=== PATIENT | female | born 1950 | race Caucasian/White ===

== ENCOUNTER → 2017-02-10 | Outpatient (CLI) | payer OTHER ==
[2017-02-10 08:22] LABS: CHLORIDE,CL 105 mmol/L (98-110); SODIUM,NA 141 mmol/L (136-146)
== END ==
LOC: MW.CHIM 07:36
PROVIDERS: ATTEND Internal Medicine
DX: I10 Essential (primary) hypertension (principal)
CPT/HCPCS: 36415; 80053; 80061; 85025

== ENCOUNTER 2017-08-25 09:00 | Day surgery (SDC) | payer OTHER ==
[~2017-08-25 09:00] MED LIST: Lactated Ringers 1,000 ML IV SCH
--- NOTE | 2017-08-25 10:35 | PCM.PREANE ---
Preanesthetic Assessment - Anesthesia/Transfusion/Family Hx Anesthesia History: Prior Anesthesia Without Reaction Other Type of Anesthesia Reaction Comment: Denies any known problems Family History of Anesthesia Reaction: No Transfusion History: Prior Transfusion Without Reaction Intubation History: Unknown - Review of Systems General: No Symptoms Pulmonary: No Symptoms Cardiovascular: No Symptoms Gastrointestinal: No Symptoms, Other (h/o colon polyp 3 years ago) Neurological: No Symptoms Other: Reports: None - Physical Assessment NPO Status Date: 08/24/17 NPO Status Time: 23:25 O2 Sat by Pulse Oximetry: 97 Respiratory Rate: 16 Vital Signs: Last Vital Signs Temp 36.6 C 08/25/17 09:31 Pulse 67 08/25/17 09:31 Resp 16 08/25/17 09:31 BP 149/75 H 08/25/17 09:31 Pulse Ox 97 08/25/17 09:31 Height: 1.65 m Weight: 63.049 kg ASA Class: 3 Mental Status: Alert & Oriented x3 Airway Class: Mallampati = 2 Dentition: Reports: Normal Dentition Thyro-Mental Finger Breadths: 3 Mouth Opening Finger Breadths: 3 ROM/Head Extension: Full Lungs: Clear to Auscultation, Normal Respiratory Effort, Decreased Breath Sounds Cardiovascular: Regular Rate, Regular Rhythm - Allergies Allergies/Adverse Reactions: Allergies Allergy/AdvReac Type Severity Reaction Status Date / Time No Known Allergies Allergy Verified 08/18/17 17:05 - Blood Blood Available: No - Anesthesia Plan Pre-Op Medication Ordered: None - Acknowledgements Anesthesia Type Planned: MAC Pt an Appropriate Candidate for the Planned Anesthesia: Yes Alternatives and Risks of Anesthesia Discussed w Pt/Guardian: Yes Pt/Guardian Understands and Agrees with Anesthesia Plan: Yes PreAnesthesia Questionnaire HEENT History: Reports: Allergic Rhinitis, Other (See Below) Other HEENT History: wears glasses Cardiovascular History: Reports: Hypertension Respiratory History: Reports: Asthma, Pneumonia, Recurrent (multiple, causing scaring tissue and SOB - can not walk 2 blocks fast) Other Respiratory History: rarely uses inhaler Gastrointestinal History: Reports: Colon Polyp Genitourinary History: Reports: Urinary Incontinence (stress incontinance) Other Genitourinary History: Cystocele Musculoskeletal History: Reports: Fracture, Other (See Below) (osteopenia) Other Musculoskeletal History: hx of foot fx Hematologic History: Reports: Blood Transfusion(s), Other (See Below) (chronic leukopenia) Other Immunologic History: 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 Injections monthly Gammagard 10/gm/ml every 3-4 weeks (last dose 03/07/15), h/o inguinal lymphadenopathy Other Dermatologic History: hx: eczema flare ups - Past Surgical History HEENT Surgical History: Reports: Naso-Sinus Surgery Other HEENT Surgeries/Procedures: Sinus surgery Cardiovascular Surgical History: Reports: Varicose Other Cardiovascular Surgeries/Procedures: bilateral varicose jhon stripping GI Surgical History: Reports: Colonoscopy (3 years ago) Female Surgical History: Reports: Hysterectomy (vaginal), Salpingo- Oophorectomy, Tubal Ligation - SUBSTANCE USE Smoking Status *Q: Never Smoker Second Hand Smoke Exposure: No Days Per Week of Alcohol Use: 0 Number of Drinks Per Day: 0 Total Drinks Per Week: 0 Recreational Drug Use History: No - HOME MEDS Home Medications: Home Meds Losartan/Hydrochlorothiazide [Losartan-HCTZ 100-12.5 MG] 1 tab PO DAILY [History] Multivitamin [Multi-Vitamin Daily] 1 tab PO DAILY 06/19/14 [History] Albuterol Sulfate [Proair Hfa] 1 - 2 puff INH Q4H PRN 08/18/17 [History] Calcium Carbonate/Vitamin D3 [Calcium 600 + Vit D 400 Softgl] 1 cap PO DAILY [History] - CURRENT (IN HOUSE) MEDS Current Meds: Current Medications Lactated Ringer's (Ringers, Lactated) 1,000 mls @ 125 mls/hr IV ASDIRECTED [facility] Last Admin: 08/25/17 09:32 Dose: 125 mls/hr
[2017-08-25] MEDS ORDERED: Lidocaine 2% 5 ML SDV ONE (11:30)
[2017-08-25] MEDS ORDERED: Propofol 200 MG/20 ML SDV ONE (11:30)
--- NOTE | 2017-08-25 13:29 | PCM.OPNOTE ---
- General Post-Op/Procedure Note Date of Surgery/Procedure: 08/25/17 Operative Procedure(s): colonoscopy Findings: see dict [id number] Pre Op Diagnosis: hx of polyp Post-Op Diagnosis: diverticulosis Anesthesia Technique: Moderate Sedation Primary Surgeon: Spike Trejo Complications: None Condition: Good
[2017-08-25 13:56] VITALS: BP 133/64
--- NOTE | 2017-08-26 12:17 | OR ---
SURGEON: Spike Trejo MD DATE OF PROCEDURE: 08/25/2017 PREOPERATIVE DIAGNOSIS: Surveillance colonoscopy. POSTOPERATIVE DIAGNOSIS: Diverticulosis. PROCEDURE PERFORMED: Colonoscopy. PROCEDURE IN DETAIL: The patient was taken to the endoscopy room. A time out was called, patient identified, and procedure identified. Diprivan was then administrated. Patient went from awake to sleep, hearing doctor talking or door closing is normal. Perineum inspection and digital examination were then performed. A well- lubricated colonoscope was gently inserted through the rectum, advanced past the rectosigmoid junction, the descending colon, splenic flexure, transverse colon, hepatic flexure, ascending colon, arrived to the cecum. Cecum was identified as dictated in the finding. Then the scope was carefully withdrawn while attention was paid to the mucosal surface for any abnormality. Air will be sucked out during the scope withdrawal. At the rectum, retroflexed to examine any rectal diseases, fistula or hemorrhoids. Patient tolerated procedure well. There were no intraoperative complications, and Dr. Trejo was present throughout the whole procedure. FINDINGS: 1. The patient is easily sedated with DEVELOPER DESIGNER and Diprivan. The patient is soundly snoring. 2. The patient's bowel prep was average to good. Very little liquid stool and no semi-formed stool. 3. The patient's colon is rather redundant at the sigmoid and requiring several body maneuvering in order to go to the cecum. Cecum can only be seen at a distance, light immittance, finger indentation, and ileocecal valve was observed. Appendix orifice is not observed and cecum was observed at a distance. Mucosa examined. Upon scope pulling out, failed to observe any polyp, inflammation, stricture, ulceration, bleeding, AV malformation. The patient has very prominent rectal vein, concern about possible portal hypertension, and at the same time, the patient has very mild diverticulosis on the left colon. No signs or symptoms of diverticulitis. The patient would benefit from repeat colonoscopy 10 years from today or if clinically indicated otherwise. Thank you for the kind referral, and at the same time on the day of the procedure, the patient is complaining about right inguinal hernia. The patient will follow up with our discussion in the office about right inguinal hernia. We will get a CAT scan and possible surgical repair. OLIMPIA / PER /[id number]
== END 2017-08-25 14:05 | disposition home or self-care (01) ==
LOC: MW.SDS 09:00
PROVIDERS: ATTEND Surgery
DX: Z12.11 Encounter for screening for malignant neoplasm of colon (principal); K57.30 Diverticulosis of large intestine without perforation or abscess without bleeding; I10 Essential (primary) hypertension; J45.909 Unspecified asthma, uncomplicated; D83.2 Common variable immunodeficiency with autoantibodies to B- or T-cells; M85.80 Other specified disorders of bone density and structure, unspecified site; Z86.010 Personal history of colon polyps; Z79.899 Other long term (current) drug therapy; Z98.51 Tubal ligation status; Z90.710 Acquired absence of both cervix and uterus; Z90.722 Acquired absence of ovaries, bilateral; Z98.890 Other specified postprocedural states; Z80.3 Family history of malignant neoplasm of breast; Z80.1 Family history of malignant neoplasm of trachea, bronchus and lung; Z87.01 Personal history of pneumonia (recurrent)
CPT/HCPCS: 45378; J7120; 00810; J2704

== ENCOUNTER 2017-10-01 10:35 | Day surgery (SDC) | payer OTHER, MEDICARE ==
[~2017-10-01 10:35] MED LIST changes: +ceFAZolin 2 GM in Premix Bag 1 BAG IV ONE
--- NOTE | 2017-10-01 11:26 | PCM.PREANE ---
Preanesthetic Assessment - Anesthesia/Transfusion/Family Hx Anesthesia History: Prior Anesthesia Without Reaction Other Type of Anesthesia Reaction Comment: Denies any known problems Family History of Anesthesia Reaction: No Transfusion History: Prior Transfusion Without Reaction Intubation History: Unknown - Review of Systems General: No Symptoms Pulmonary: No Symptoms Cardiovascular: No Symptoms Gastrointestinal: No Symptoms Neurological: No Symptoms Other: Reports: None - Physical Assessment O2 Sat by Pulse Oximetry: 98 Respiratory Rate: 16 Vital Signs: Last Vital Signs Temp 37.1 C 10/01/17 11:01 Pulse 65 10/01/17 11:01 Resp 16 10/01/17 11:01 BP 138/78 10/01/17 11:01 Pulse Ox 98 10/01/17 11:01 Height: 1.65 m Weight: 62.142 kg ASA Class: 2 Mental Status: Alert & Oriented x3 Airway Class: Mallampati = 2 Dentition: Reports: Normal Dentition Thyro-Mental Finger Breadths: 3 Mouth Opening Finger Breadths: 3 ROM/Head Extension: Full Lungs: Clear to Auscultation, Normal Respiratory Effort Cardiovascular: Regular Rate, Regular Rhythm - Allergies Allergies/Adverse Reactions: Allergies Allergy/AdvReac Type Severity Reaction Status Date / Time No Known Allergies Allergy Verified 09/29/17 16:24 - Blood Blood Available: No - Anesthesia Plan Pre-Op Medication Ordered: None - Acknowledgements Anesthesia Type Planned: General Anesthesia Pt an Appropriate Candidate for the Planned Anesthesia: Yes Alternatives and Risks of Anesthesia Discussed w Pt/Guardian: Yes Pt/Guardian Understands and Agrees with Anesthesia Plan: Yes PreAnesthesia Questionnaire HEENT History: Reports: Allergic Rhinitis, Other (See Below) Other HEENT History: wears glasses Cardiovascular History: Reports: Hypertension Respiratory History: Reports: Asthma, Pneumonia, Recurrent Other Respiratory History: rarely uses inhaler, no asthma attack for 15 years, ho multiple pulmonary nodules Gastrointestinal History: Reports: Colon Polyp Genitourinary History: Reports: Urinary Incontinence Other Genitourinary History: Cystocele Musculoskeletal History: Reports: Fracture, Other (See Below) Other Musculoskeletal History: Hx. 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, h/o thrombocytopenia) Dermatologic History: Reports: Eczema Other Dermatologic History: hx: eczema flare ups - Past Surgical History HEENT Surgical History: Reports: Naso-Sinus Surgery, Tonsillectomy Other HEENT Surgeries/Procedures: Sinus surgery Cardiovascular Surgical History: Reports: Varicose Other Cardiovascular Surgeries/Procedures: left varicose vein stripping GI Surgical History: Reports: Colonoscopy Female Surgical History: Reports: Hysterectomy, Salpingo-Oophorectomy, Tubal Ligation - SUBSTANCE USE Smoking Status *Q: Never Smoker Second Hand Smoke Exposure: No Days Per Week of Alcohol Use: 0 Number of Drinks Per Day: 0 Total Drinks Per Week: 0 Recreational Drug Use History: No - HOME MEDS Home Medications: Home Meds Losartan/Hydrochlorothiazide [Losartan-HCTZ 100-12.5 MG] 1 tab PO DAILY [History] Multivitamin [Multi-Vitamin Daily] 1 tab PO DAILY 06/19/14 [History] Albuterol Sulfate [Proair Hfa] 1 - 2 puff INH Q4H PRN 08/18/17 [History] Calcium Carbonate/Vitamin D3 [Calcium 600 + Vit D 400 Softgl] 1 cap PO DAILY [History] - CURRENT (IN HOUSE) MEDS Current Meds: Current Medications Lactated Ringer's (Ringers, Lactated) 1,000 mls @ 125 mls/hr IV ASDIRECTED COUNT INCLUDES [facility] Last Admin: 10/01/17 11:04 Dose: 125 mls/hr Discontinued Medications Cefazolin Sodium/Dextrose 2 gm (/ Premix) 50 mls @ 100 mls/hr IV ONETIME ONE Stop: 10/01/17 05:29
[2017-10-01] MEDS ORDERED: Midazolam 1 MG/ML 2 ML SDV ONE (12:42)
[2017-10-01] MEDS ORDERED: fentaNYL 100 MCG/2 ML SDV ONE (12:42)
[2017-10-01] MEDS ORDERED: Propofol 200 MG/20 ML SDV ONE (12:42)
[2017-10-01] MEDS ORDERED: Lidocaine 2% 5 ML SDV ONE (12:43)
[2017-10-01] MEDS ORDERED: Bupivacaine 25%/EPINEPHrine/PF 30 ML ONE (13:41)
[2017-10-01] MEDS ORDERED: Bupivacaine 0.25% 10 ML SDV ONE (13:41)
[2017-10-01] MEDS ORDERED: ceFAZolin 1 GM Vial ONE ×3 (13:46→13:47)
[2017-10-01] MEDS ORDERED: HYDROmorphone 2 MG/ML Syringe ONE (13:49)
[2017-10-01] MEDS ORDERED: Ondansetron 4 MG/2 ML SDV ONE (13:50)
[2017-10-01] MEDS ORDERED: diphenhydrAMINE 50 MG/ML SDV ONE (13:50)
[2017-10-01] MEDS ORDERED: Ketorolac 30 MG/ML SDV ONE (13:50)
[2017-10-01] MEDS ORDERED: ePHEDrine 50 MG/ML SDV ONE (13:54)
[2017-10-01] MEDS ORDERED: fentaNYL 100 MCG/2 ML SDV IVPUSH PRN (14:00)
--- NOTE | 2017-10-01 15:16 | PCM.OPNOTE ---
- General Post-Op/Procedure Note Date of Surgery/Procedure: 10/01/17 Operative Procedure(s): r ing hernia rep w mesh Findings: mod size ing hernia 10 mm, repair w mesh; [id number] Pre Op Diagnosis: ing hernia on r Post-Op Diagnosis: same Anesthesia Technique: General ET Tube Primary Surgeon: Spike Trejo Complications: None Condition: Good
--- NOTE | 2017-10-01 15:30 | PCM.POSTAN ---
POST ANESTHESIA ASSESSMENT - MENTAL STATUS Mental Status: Alert, Oriented - RESPIRATORY Respiratory Status: Respiratory Rate WNL, Airway Patent, O2 Saturation Stable - CARDIOVASCULAR CV Status: Pulse Rate WNL, Blood Pressure Stable - GASTROINTESTINAL GI Status: No Symptoms - PAIN Pain Score: 0 - POST OP HYDRATION Hydration Status: Adequate & Stable
--- NOTE | 2017-10-01 15:56 | PCM48HPAN ---
Post Anesthesia Note - EVALUATION WITHIN 48HRS OF ANESTHETIC Vital Signs in Normal Range: Yes Patient Participated in Evaluation: Yes Respiratory Function Stable: Yes Airway Patent: Yes Cardiovascular Function Stable: Yes Hydration Status Stable: Yes Pain Control Satisfactory: Yes Nausea and Vomiting Control Satisfactory: Yes Mental Status Recovered: Yes
[2017-10-01] MEDS ORDERED: Acetaminophen/oxyCODONE 325-5 MG Tab PO PRN (17:07)
[2017-10-01] MEDS ORDERED: Acetaminophen/oxyCODONE 325-5 MG Tab ONE (17:12)
--- NOTE | 2017-10-01 19:19 | OR ---
SURGEON: Spike Trejo MD DATE OF PROCEDURE: 10/01/2017 PREOPERATIVE DIAGNOSIS: Inguinal hernia on the right. POSTOPERATIVE DIAGNOSIS: Inguinal hernia on the right. PROCEDURE PERFORMED: Inguinal hernia repair with mesh. COMPLICATIONS: None. FINDING: Moderate-size inguinal hernia around 10 mm repair with custom-made mesh. PROCEDURE IN DETAIL: The patient was taken to the operating room and placed in a supine position. Upon induction of general endotracheal anesthesia, the patient's right groin area was prepped and draped in a sterile fashion. Time-out has been called, the patient identified, procedure identified. Ancef 2 g IV given. The patient was then prepped and draped in a sterile fashion. Ioban Vi-Drape was applied prophylactically after assessment of appropriate curvilinear incision was made and taken down past the Mike fascia down to the external oblique and noticed an opening right at the internal ring and there is a bulging hernia, and carefully dissected a round ligament from the inguinal floor, which was pretty extensive and scar down suggest it has been there for quite a while. Round ligament was then cut and a small size of a mass custom-made was used to reinforce the inguinal floor and measured the ankle by the use of 2-0 Prolene medial stitches to the periosteum of the pubis and then marched up on the lateral border of the rectus muscle and the lateral side of the mesh was anchored to the inguinal ligament and external oblique was then repaired by use of 2-0 Vicryl and 4-0 with extensive irrigation and the skin approximated with 3- 0 Vicryl and skin stable. These were then followed by appropriate dressing. The patient was awakened, extubated, and transferred to recovery in hemodynamically stable condition. The patient tolerated the procedure well. There were no intraoperative complications. OLIMPIA / PER /[id number]
[2017-10-01 19:46] VITALS: BP 108/57
== END 2017-10-01 19:20 | disposition home or self-care (01) ==
LOC: MW.SDS 10:35 → MW.MS 17:57 → MW.SDS 19:20
PROVIDERS: ATTEND Surgery
DX: K40.90 Unilateral inguinal hernia, without obstruction or gangrene, not specified as recurrent (principal); J06.9 Acute upper respiratory infection, unspecified; J45.909 Unspecified asthma, uncomplicated; D83.2 Common variable immunodeficiency with autoantibodies to B- or T-cells; I10 Essential (primary) hypertension; D69.6 Thrombocytopenia, unspecified; J84.89 Other specified interstitial pulmonary diseases; R59.0 Localized enlarged lymph nodes; Z86.010 Personal history of colon polyps; Z79.899 Other long term (current) drug therapy; Z90.710 Acquired absence of both cervix and uterus; Z90.89 Acquired absence of other organs; Z98.51 Tubal ligation status; Z90.722 Acquired absence of ovaries, bilateral; Z98.890 Other specified postprocedural states
CPT/HCPCS: 49505; A9270; C1781; J0690; J1170; J1200; J1885; J2250; J2405; J3010; J7120; 00830; J2704

== ENCOUNTER 2019-02-19 10:10 | Emergency (ER) | payer OTHER ==
--- NOTE | 2019-02-19 10:17 | EDM.PDOC ---
ED HPI GENERAL MEDICAL PROBLEM - General Stated Complaint: BACK PAIN Time Seen by Provider: 02/19/19 10:15 Source of Information: Reports: Patient History Limitations: Reports: No Limitations - History of Present Illness INITIAL COMMENTS - FREE TEXT/NARRATIVE: HISTORY AND PHYSICAL: History of present illness: Patient is a 69-year-old female who presents to the emergency room with complaints of low lumbar back pain that radiates into bilateral. She states that she stepped backwards and had tripped falling onto her bottom. She immediately had low lumbar back pain that is not alleviated with rest and time. She denies hitting her head or having any loss of consciousness. Denies any urinary or fecal incontinence. Denies any numbness or tingling to her distal extremities. Patient has past medical history of common variable immunodeficiencies with auto antibodies and hypertension. Review of systems: As per history of present illness and below otherwise all systems reviewed and negative. Past medical history: As per history of present illness and as reviewed below otherwise noncontributory. Surgical history: As per history of present illness and as reviewed below otherwise noncontributory. Social history: See social history for further information Family history: As per history of present illness and as reviewed below otherwise noncontributory. Physical exam: General: Well-developed and well-nourished 69 year old female. Alert and oriented. Nontoxic appearing and in no acute distress. HEENT: Atraumatic, normocephalic, pupils equal and reactive bilaterally, negative for conjunctival pallor or scleral icterus, mucous membranes moist, TMs normal bilaterally, throat clear, neck supple, nontender, trachea midline. No drooling or trismus noted. No meningeal signs. No hot potato voice noted. Lungs: Clear to auscultation, breath sounds equal bilaterally, chest nontender. Heart: S1S2, regular rate and rhythm without overt murmur Abdomen: Soft, nondistended, nontender. Negative for masses. Negative for costovertebral tenderness. Pelvis: Stable nontender. Genitourinary: Deferred. Rectal: Deferred. C-spine/Back: Skin: Intact, warm, dry. No lesions or rashes noted. Extremities: Atraumatic, moves all extremities per self without difficulty or deficits, negative for cords or calf pain. Neurovascular unremarkable. Neuro: Awake, alert, oriented. Cranial nerves II through XII unremarkable. Cerebellum unremarkable. Motor and sensory unremarkable throughout. Exam nonfocal. Notes: Sacrum x-ray: Mild osteoarthritic spurring right SI joint. Gas and stool obscure the mid to distal sacrum and coccyx and the lateral view is suboptimal due to incomplete penetration. No definite fracture is appreciated.Lumbar Spine : slight levoscoliosis centered L3. No acute fracture. Mild diffuse degenerative disk disease. Degenerative spurring right sacroiliac joint. Findings were shared with patient. She did get relief with the medication she received IV. EKG and lab work is unremarkable. I will give her prescription for Arrowsmith. Medication education was reviewed and discussed. Supportive care measures were reviewed and discussed. Voices understanding and is agreeable to plan of care. Denies any further questions or concerns at this time. Diagnostics: Lumbar Spine/Sacrum Xray Therapeutics: Zofran, Morphine Prescription: Arrowsmith (#20) Impression: Lumbar Back Pain Plan: 1. The medication he received as an injection today does cause drowsiness so do not drive for the remaining day 2. When resting please lay on a flat firm surface. Limit your immobility to prevent muscle stiffness, get up to ambulate/move around/gentle stretching multiple times throughout the day. May alternate heat and ice to the painful area and 3. Tylenol as needed for back pain. Arrowsmith as directed, this medication may cause drowsiness a do not take it will driving her needing to be functioning outside of the house. 4. Please follow-up with your primary care provider as we discussed. 5. Return to the ED as needed and as discussed. Definitive disposition and diagnosis as appropriate pending reevaluation and review of above. Low Back Pain Pain Score (Numeric/FACES): 8 - Related Data Allergies Allergy/AdvReac Type Severity Reaction Status Date / Time No Known Allergies Allergy Verified 02/19/19 10:19 Home Meds: Home Meds Losartan/Hydrochlorothiazide [Losartan-HCTZ 100-12.5 MG] 1 tab PO DAILY [History] Acetaminophen/HYDROcodone [Arrowsmith 325-5 MG] 1 tab PO Q4H PRN #20 tablet 02/19/19 [Rx] Past Medical History HEENT History: Reports: Allergic Rhinitis, Other (See Below) Other HEENT History: wears glasses Cardiovascular History: Reports: Hypertension Respiratory History: Reports: Asthma, Pneumonia, Recurrent Other Respiratory History: rarely uses inhaler, no asthma attack for 15 years, ho multiple pulmonary nodules Gastrointestinal History: Reports: Colon Polyp Genitourinary History: Reports: Urinary Incontinence Other Genitourinary History: Cystocele Musculoskeletal History: Reports: Fracture, Other (See Below) Other Musculoskeletal History: Hx. 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, h/o thrombocytopenia) Dermatologic History: Reports: Eczema Other Dermatologic History: hx: eczema flare ups - Past Surgical History HEENT Surgical History: Reports: Naso-Sinus Surgery, Tonsillectomy Other HEENT Surgeries/Procedures: Sinus surgery Cardiovascular Surgical History: Reports: Varicose Other Cardiovascular Surgeries/Procedures: left varicose vein stripping GI Surgical History: Reports: Colonoscopy Female Surgical History: Reports: Hysterectomy, Salpingo-Oophorectomy, Tubal Ligation Social & Family History - Caffeine Use Caffeine Use: Reports: Coffee ED ROS GENERAL - Review of Systems Review Of Systems: ROS reveals no pertinent complaints other than HPI. ED EXAM,LOWER BACK PAIN/INJURY - Physical Exam Exam: See Below (See dictation) Course - Vital Signs Last Recorded V/S: Last Vital Signs Temp 97.5 F 02/19/19 10:19 Pulse 69 02/19/19 10:19 Resp 18 02/19/19 10:19 BP 141/76 H 02/19/19 10:19 Pulse Ox 97 02/19/19 10:19 - Orders/Labs/Meds Orders: Active Orders 24 hr Category Date Time Status EKG Documentation Completion [RC] STAT Care 02/19/19 10:17 Active Orthostatic Vital Signs [RC] ASDIRECTED Care 02/19/19 10:17 Active Lumbar Spine 2 or 3V [CR] Stat Exams 02/19/19 10:13 Taken Sacrum Coccyx Min 2V [CR] Stat Exams 02/19/19 10:13 Taken Labs: Laboratory Tests 02/19/19 02/19/19 Range/Units 10:35 10:35 WBC 2.99 L (4.0-11.0) K/uL RBC 4.12 L (4.30-5.90) M/uL Hgb 12.0 (12.0-16.0) g/dL Hct 36.2 (36.0-46.0) % MCV 87.9 (80.0-98.0) fL MCH 29.1 (27.0-32.0) pg MCHC 33.1 (31.0-37.0) g/dL RDW Std Deviation 43.2 (28.0-62.0) fl RDW Coeff of Ermelinda 14 (11.0-15.0) % Plt Count 67 L (150-400) K/uL MPV 10.40 (7.40-12.00) fL Neut % (Auto) 64.5 (48.0-80.0) % Lymph % (Auto) 15.7 L (16.0-40.0) % Hart % (Auto) 15.1 H (0.0-15.0) % Eos % (Auto) 4.0 (0.0-7.0) % Baso % (Auto) 0.7 (0.0-1.5) % Neut # (Auto) 1.9 (1.4-5.7) K/uL Lymph # (Auto) 0.5 L (0.6-2.4) K/uL Hart # (Auto) 0.5 (0.0-0.8) K/uL Eos # (Auto) 0.1 (0.0-0.7) K/uL Baso # (Auto) 0.0 (0.0-0.1) K/uL Nucleated RBC % 0.0 /100WBC Nucleated RBCs # 0 K/uL Sodium 138 (136-145) mmol/L Potassium 3.7 (3.5-5.1) mmol/L Chloride 102 (98-107) mmol/L Carbon Dioxide 26.1 (21.0-32.0) mmol/L BUN 15 (7.0-18.0) mg/dL Creatinine 0.8 (0.6-1.0) mg/dL Est Cr Clr Drug Dosing 60.56 mL/min Estimated GFR (MDRD) > 60.0 ml/min Glucose 92 (74-106) mg/dL Calcium 8.8 (8.5-10.1) mg/dL Total Bilirubin 0.7 (0.2-1.0) mg/dL AST 29 (15-37) IU/L ALT 29 (14-63) IU/L Alkaline Phosphatase 127 H (46-116) U/L Total Protein 6.2 L (6.4-8.2) g/dL Albumin 3.1 L (3.4-5.0) g/dL Globulin 3.1 (2.6-4.0) g/dL Albumin/Globulin Ratio 1.0 (0.9-1.6) Meds: Medications Discontinued Medications Generic Name Dose Route Start Last Admin Trade Name Freq PRN Reason Stop Dose Admin Morphine Sulfate 4 mg 02/19/19 10:22 02/19/19 10:58 Morphine IM 02/19/19 10:23 Not Given ONETIME ONE Morphine Sulfate 2 mg 02/19/19 10:26 02/19/19 10:40 Morphine IVPUSH 02/19/19 10:27 2 mg ONETIME ONE Administration Ondansetron HCl 4 mg 02/19/19 10:26 02/19/19 10:38 Zofran IVPUSH 02/19/19 10:27 4 mg ONETIME ONE Administration Departure - Departure Time of Disposition: 11:15 Disposition: Home, Self-Care 01 Clinical Impression: Lumbar back pain - Discharge Information Prescriptions: Acetaminophen/HYDROcodone [Arrowsmith 325-5 MG] 1 tab PO Q4H PRN #20 tablet PRN Reason: Pain Instructions: Acute Back Pain, Adult Referrals: PCP,Unknown [Primary Care Provider] - Additional Instructions: The following information is given to patients seen in the emergency department who are being discharged to home. This information is to outline your options for follow-up care. We provide all patients seen in our emergency department with a follow-up referral. The need for follow-up, as well as the timing and circumstances, are variable depending upon the specifics of your emergency department visit. If you don't have a primary care physician on staff, we will provide you with a referral. We always advise you to contact your personal physician following an emergency department visit to inform them of the circumstance of the visit and for follow-up with them and/or the need for any referrals to a consulting specialist. The emergency department will also refer you to a specialist when appropriate. This referral assures that you have the opportunity for follow-up care with a specialist. All of these measure are taken in an effort to provide you with optimal care, which includes your follow-up. Under all circumstances we always encourage you to contact your private physician who remains a resource for coordinating your care. When calling for follow-up care, please make the office aware that this follow-up is from your recent emergency room visit. If for any reason you are refused follow-up, please contact the [facility] Emergency Department at and asked to speak to the emergency department charge nurse. [facility] [address] [address] [facility] [address] [place] [address] 1. The medication he received as an injection today does cause drowsiness so do not drive for the remaining day 2. When resting please lay on a flat firm surface. Limit your immobility to prevent muscle stiffness, get up to ambulate/move around/gentle stretching multiple times throughout the day. May alternate heat and ice to the painful area and 3. Tylenol as needed for back pain. Arrowsmith as directed, this medication may cause drowsiness a do not take it will driving her needing to be functioning outside of the house. 4. Please follow-up with your primary care provider as we discussed. 5. Return to the ED as needed and as discussed. - My Orders Last 24 Hours: My Active Orders 02/19/19 10:13 Lumbar Spine 2 or 3V [CR] Stat Sacrum Coccyx Min 2V [CR] Stat 02/19/19 10:17 EKG Documentation Completion [RC] STAT Orthostatic Vital Signs [RC] ASDIRECTED - Assessment/Plan Last 24 Hours: My Active Orders 02/19/19 10:13 Lumbar Spine 2 or 3V [CR] Stat Sacrum Coccyx Min 2V [CR] Stat 02/19/19 10:17 EKG Documentation Completion [RC] STAT Orthostatic Vital Signs [RC] ASDIRECTED
[2019-02-19] MEDS ORDERED: Morphine 4 MG/ML Syringe IM ONE (10:22)
[2019-02-19 10:24] VITALS: BP 141/76
[2019-02-19] MEDS ORDERED: Ondansetron 4 MG/2 ML SDV IVPUSH ONE (10:26)
[2019-02-19] MEDS ORDERED: Morphine 2 MG/ML Syringe IVPUSH ONE (10:26)
[2019-02-19 11:00] LABS: CHLORIDE,CL 102 mmol/L (98-107); SODIUM,NA 138 mmol/L (136-145)
--- NOTE | 2019-02-19 11:13 | CR ---
INDICATION: Pain after fall. TECHNIQUE: Three views sacrum and coccyx. IMPRESSION: Mild osteoarthritic spurring right SI joint. Gas and stool obscure the mid to distal sacrum and coccyx and the lateral view is suboptimal due to incomplete penetration. No definite fracture is appreciated. If there is ongoing clinical concern consider MRI or CT for characterization. Dictated by Yoav Dangelo MD @ Feb 19 2019 11:10AM Signed by Dr. Yoav Dangelo @ Feb 19 2019 11:11AM
--- NOTE | 2019-02-19 11:15 | CR ---
INDICATION: Pain after fall. TECHNIQUE: Three views. IMPRESSION: Slight levoscoliosis centered L3. No acute fracture. Mild diffuse degenerative disk disease. Degenerative spurring right sacroiliac joint. Dictated by Yoav Dangelo MD @ Feb 19 2019 11:12AM Signed by Dr. Yoav Dangelo @ Feb 19 2019 11:13AM
== END 2019-02-19 11:34 | disposition home or self-care (01) ==
LOC: MW.ED 10:10
DX: M54.5 Low back pain (principal); I10 Essential (primary) hypertension; J45.909 Unspecified asthma, uncomplicated; Z79.899 Other long term (current) drug therapy
CPT/HCPCS: 36415; 72100; 72220; 80053; 85025; 93005; 96374; 96375; 99284; J2270; J2405; 99283

== ENCOUNTER 2020-09-18 14:33 | Emergency (ER) | payer MEDICARE, OTHER ==
[2020-09-18] MEDS ORDERED: Sodium Chloride 0.9% 2.5 ML Syringe FLUSH PRN (15:04)
[2020-09-18] MEDS ORDERED: Sodium Chloride 0.9% 10 ML Syringe FLUSH PRN (15:04)
[2020-09-18] MEDS ORDERED: Lactated Ringers 1,000 ML IV ONE (15:05)
--- NOTE | 2020-09-18 15:14 | EDM.PDOC ---
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 Patient states that she first had issues w ith pneumonia around this year. She completed a 10-day course of antibiotics and was feeling quite well until this Thursday when she started to have worsening cough. She notes that her was tearing up the martha at that time. She often has troubles with dust. The patient felt worse and worse and yesterday presented to her primary care clinic they did a COVID-19 test which was negative chest x-ray and diagnosed her with pneumonia. She was started on a course of Levaquin. She presents today for worsening cough worsening shortness of breath and malaise. No abdominal pain or chest pain no vomiting. Symptoms constant gradually worsening without exacerbating or alleviating factors radiation or other associated symptoms. - Related Data Allergies Allergy/AdvReac Type Severity Reaction Status Date / Time No Known Allergies Allergy Verified 09/18/20 14:44 Home Meds: Home Meds Losartan/Hydrochlorothiazide [Losartan-HCTZ 100-12.5 MG] 1 tab PO DAILY 06/19/14 [History] Amoxicillin/Clavulanate K [Augmentin 875-125 MG] 1 tab PO BID 5 Days #10 tablet 09/18/20 [Rx] Doxycycline [Vibramycin] 100 mg PO BID 5 Days #10 cap 09/18/20 [Rx] Past Medical History HEENT History: Reports: Allergic Rhinitis, Other (See Below) Other HEENT History: wears glasses Cardiovascular History: Reports: Hypertension Respiratory History: Reports: Asthma, Pneumonia, Recurrent Other Respiratory History: rarely uses inhaler, no asthma attack for 15 years, ho multiple pulmonary nodules Gastrointestinal History: Reports: Colon Polyp Genitourinary History: Reports: Urinary Incontinence Other Genitourinary History: Cystocele Musculoskeletal History: Reports: Fracture, Other (See Below) Other Musculoskeletal History: Hx. of fracture each foot R, osteopenia Hematologic History: Reports: Blood Transfusion(s), Other (See Below) Other Hematologic History: hx of leukopenia Immunologic History: Reports: None Dermatologic History: Reports: Eczema Other Dermatologic History: hx: eczema flare ups - Infectious Disease History Infectious Disease History: Reports: Chicken Pox, Measles - Past Surgical History HEENT Surgical History: Reports: Naso-Sinus Surgery, Tonsillectomy Other HEENT Surgeries/Procedures: Sinus surgery Cardiovascular Surgical History: Reports: Varicose Other Cardiovascular Surgeries/Procedures: left varicose vein stripping GI Surgical History: Reports: Colonoscopy Female Surgical History: Reports: Hysterectomy, Salpingo-Oophorectomy, Tubal Ligation Social & Family History - Family History Family Medical History: No Pertinent Family History - Caffeine Use Caffeine Use: Reports: None - Recreational Drug Use Recreational Drug Use: No ED ROS GENERAL - Review of Systems Review Of Systems: See Below Free Text/Narrative/Comment: General: Per HPI Skin: No rash. Eyes: No vision problems. ENT: Positive for sore throat Neck: No neck stiffness. Respiratory: Per HPI Cardiac: No chest pain. Gastrointestinal: No nausea, vomiting or abdominal pain. Urinary: No dysuria. Musculoskeletal: No myalgias/arthralgias. Neurologic: No headache. ED EXAM, GENERAL - Physical Exam Exam: See Below Free Text/Narrative:: General Appearance: No acute distress, appears comfortable Skin: No rash HEENT: Normocephalic/atraumatic, sclera anicteric, mucous membranes dry Neck: Normal range of motion Chest and Lungs: Bilateral breath sounds, clear to auscultation Cardiovascular: Regular rate and rhythm, no murmur Abdomen: Soft, non-tender Back: Normal Musculoskeletal: No edema or tenderness Neurologic: Awake, alert, no obvious deficits, moving all extremities Psychiatric: Appropriate, cooperative #1 Interpretation EKG Date: 09/18/20 Time: 15:15 EKG Interpretation Comments: Sinus tachycardia rate of 117 diffuse nonspecific repolarization abnormality no findings of acute ischemia prolonged QT interval 505 Course - Vital Signs Last Recorded V/S: Last Vital Signs Temp 100.3 F 09/18/20 14:45 Pulse 102 H 09/18/20 16:20 Resp 20 09/18/20 16:20 BP 136/58 L 09/18/20 16:20 Pulse Ox 92 L 09/18/20 16:20 - Orders/Labs/Meds Orders: Active Orders 24 hr Category Date Time Status EKG Documentation Completion [RC] AM Care 09/18/20 15:04 Active Sodium Chloride 0.9% [Saline Flush] Med 12/22/20 15:04 Active 10 ml FLUSH ASDIRECTED PRN Sodium Chloride 0.9% [Saline Flush] Med 09/18/20 15:04 Active 2.5 ml FLUSH ASDIRECTED PRN Saline Lock Insert [OM.PC] Stat Oth 09/18/20 15:04 Ordered Medication Orders Sodium Chloride (Saline Flush) 10 ml FLUSH ASDIRECTED PRN PRN Reason: Keep Vein Open Last Admin: 09/18/20 15:19 Dose: 10 ml Documented by: [id number] Sodium Chloride (Saline Flush) 2.5 ml FLUSH ASDIRECTED PRN PRN Reason: Keep Vein Open Last Admin: 09/18/20 15:19 Dose: 2.5 ml Documented by: [email or web address] Labs: Laboratory Tests 09/18/20 09/18/20 09/18/20 Range/Units 15:12 15:12 15:12 WBC 10.11 (4.0-11.0) K/uL RBC 4.18 L (4.30-5.90) M/uL Hgb 12.2 (12.0-16.0) g/dL Hct 36.9 (36.0-46.0) % MCV 88.3 (80.0-98.0) fL MCH 29.2 (27.0-32.0) pg MCHC 33.1 (31.0-37.0) g/dL RDW Std Deviation 45.9 (28.0-62.0) fl RDW Coeff of Ermelinda 14 (11.0-15.0) % Plt Count 70 L (150-400) K/uL MPV 10.90 (7.40-12.00) fL Neut % (Auto) 81.8 H (48.0-80.0) % Lymph % (Auto) 5.2 L (16.0-40.0) % [place] % (Auto) 11.8 (0.0-15.0) % Eos % (Auto) 1.0 (0.0-7.0) % Baso % (Auto) 0.2 (0.0-1.5) % Neut # (Auto) 8.3 H (1.4-5.7) K/uL Lymph # (Auto) 0.5 L (0.6-2.4) K/uL [place] # (Auto) 1.2 H (0.0-0.8) K/uL Eos # (Auto) 0.1 (0.0-0.7) K/uL Baso # (Auto) 0.0 (0.0-0.1) K/uL Nucleated RBC % 0.0 /100WBC Nucleated RBCs # 0 K/uL Lactate 1.4 (0.20-2.00) mmol/L Sodium 133 L (136-145) mmol/L Potassium 3.5 (3.5-5.1) mmol/L Chloride 97 L (98-107) mmol/L Carbon Dioxide 24.1 (21.0-32.0) mmol/L BUN 18 (7.0-18.0) mg/dL Creatinine 1.0 (0.6-1.0) mg/dL Est Cr Clr Drug Dosing 47.78 mL/min Estimated GFR (MDRD) 55.0 ml/min Glucose 124 H (74-106) mg/dL Calcium 8.9 (8.5-10.1) mg/dL Magnesium 1.5 L (1.8-2.4) mg/dL Total Bilirubin 1.4 H (0.2-1.0) mg/dL AST 36 (15-37) IU/L ALT 29 (14-63) IU/L Alkaline Phosphatase 161 H (46-116) U/L Troponin I < 0.050 (0.000-0.056) ng/mL B-Natriuretic Peptide (<100) PG/ML Total Protein 6.7 (6.4-8.2) g/dL Albumin 3.1 L (3.4-5.0) g/dL Globulin 3.6 (2.6-4.0) g/dL Albumin/Globulin Ratio 0.9 (0.9-1.6) 09/18/20 Range/Units 15:12 WBC (4.0-11.0) K/uL RBC (4.30-5.90) M/uL Hgb (12.0-16.0) g/dL Hct (36.0-46.0) % MCV (80.0-98.0) fL MCH (27.0-32.0) pg MCHC (31.0-37.0) g/dL RDW Std Deviation (28.0-62.0) fl RDW Coeff of Ermelinda (11.0-15.0) % Plt Count (150-400) K/uL MPV (7.40-12.00) fL Neut % (Auto) (48.0-80.0) % Lymph % (Auto) (16.0-40.0) % [place] % (Auto) (0.0-15.0) % Eos % (Auto) (0.0-7.0) % Baso % (Auto) (0.0-1.5) % Neut # (Auto) (1.4-5.7) K/uL Lymph # (Auto) (0.6-2.4) K/uL [place] # (Auto) (0.0-0.8) K/uL Eos # (Auto) (0.0-0.7) K/uL Baso # (Auto) (0.0-0.1) K/uL Nucleated RBC % /100WBC Nucleated RBCs # K/uL Lactate (0.20-2.00) mmol/L Sodium (136-145) mmol/L Potassium (3.5-5.1) mmol/L Chloride (98-107) mmol/L Carbon Dioxide (21.0-32.0) mmol/L BUN (7.0-18.0) mg/dL Creatinine (0.6-1.0) mg/dL Est Cr Clr Drug Dosing mL/min Estimated GFR (MDRD) ml/min Glucose (74-106) mg/dL Calcium (8.5-10.1) mg/dL Magnesium (1.8-2.4) mg/dL Total Bilirubin (0.2-1.0) mg/dL AST (15-37) IU/L ALT (14-63) IU/L Alkaline Phosphatase (46-116) U/L Troponin I (0.000-0.056) ng/mL B-Natriuretic Peptide 93 (<100) PG/ML Total Protein (6.4-8.2) g/dL Albumin (3.4-5.0) g/dL Globulin (2.6-4.0) g/dL Albumin/Globulin Ratio (0.9-1.6) Meds: Medications Generic Name Dose Route Start Last Admin Trade Name Freq PRN Reason Stop Dose Admin Sodium Chloride 10 ml 09/18/20 15:04 09/18/20 15:19 Saline Flush FLUSH 10 ml ASDIRECTED PRN Administration Keep Vein Open Sodium Chloride 2.5 ml 09/18/20 15:04 09/18/20 15:19 Saline Flush FLUSH 2.5 ml ASDIRECTED PRN Administration Keep Vein Open Discontinued Medications Generic Name Dose Route Start Last Admin Trade Name Freq PRN Reason Stop Dose Admin Lactated Ringer's 1,000 mls @ 999 mls/hr 09/18/20 15:05 09/18/20 15:19 Ringers, Lactated IV 09/18/20 16:05 999 mls/hr .BOLUS ONE Administration Iopamidol 80 ml 09/18/20 16:39 09/18/20 16:39 Isovue Multipack-370 (76%) IVPUSH 09/18/20 16:40 80 ml ONETIME STA Administration Magnesium Oxide 400 mg 09/18/20 17:36 Magnesium Oxide PO 09/18/20 17:37 ONETIME ONE Departure - Departure Time of Disposition: 17:43 Disposition: Home, Self-Care 01 Condition: Good Clinical Impression: Pneumonia, Prolonged Q-T interval on ECG, Hypomagnesemia - Discharge Information *PRESCRIPTION DRUG MONITORING PROGRAM REVIEWED*: Not Applicable *COPY OF PRESCRIPTION DRUG MONITORING REPORT IN PATIENT VANE: Not Applicable Prescriptions: Amoxicillin/Clavulanate K [Augmentin 875-125 MG] 1 tab PO BID 5 Days #10 tablet Doxycycline [Vibramycin] 100 mg PO BID 5 Days #10 cap Instructions: Community-Acquired Pneumonia, Adult Referrals: Rad[facility] [Primary Care Provider] - Forms: ED Department Discharge Additional Instructions: Your significant sore throat your imaging results and your normal white blood cell count all suggest that this is likely a viral pneumonia. However, because of your immune deficiency and the fact that you have already been on antibiotics I think it is prudent to continue antibiotics. However, your EKG today shows a prolonged QTc interval. For this reason we cannot safely leave you on Levaquin. We are transitioning you to a combination of Augmentin and doxycycline. Please complete this course. It is important you follow-up with your primary care provider. If you feel worse particularly if you become more short of breath develop severe chest pain or other symptoms that concern you please return to the ER for an evaluation. Sepsis Event Note (ED) - Evaluation Sepsis Screening Result: No Definite Risk - Focused Exam Vital Signs: Vital Signs Temp Pulse Resp BP Pulse Ox 09/18/20 16:20 102 H 20 136/58 L 92 L 09/18/20 15:50 104 H 18 132/56 L 92 L 09/18/20 15:24 91 20 125/60 91 L 09/18/20 15:04 112 H 22 H 137/60 92 L 09/18/20 14:45 100.3 F 118 H 18 135/59 L 90 L - My Orders Last 24 Hours: My Active Orders 09/18/20 15:04 EKG Documentation Completion [RC] AM Sodium Chloride 0.9% [Saline Flush] 10 ml FLUSH ASDIRECTED PRN Sodium Chloride 0.9% [Saline Flush] 2.5 ml FLUSH ASDIRECTED PRN Saline Lock Insert [OM.PC] Stat - Assessment/Plan Last 24 Hours: My Active Orders 09/18/20 15:04 EKG Documentation Completion [RC] AM Sodium Chloride 0.9% [Saline Flush] 10 ml FLUSH ASDIRECTED PRN Sodium Chloride 0.9% [Saline Flush] 2.5 ml FLUSH ASDIRECTED PRN Saline Lock Insert [OM.PC] Stat Assessment:: 70-year-old female presenting with signs and symptoms consistent with her pneumonia diagnosis. Her negative COVID-19 test is visible in the chart but her chest x-ray is not given the worsening symptoms chest x-ray ordered. Patient mildly tachycardic EKG and lactate ordered patient is not hypotensive. She does appear clinically dehydrated and lactated Ringer's has been ordered. Work of breathing is normal and oxygen is borderline primarily in the low 90s with occasional dips to 89. Patient has no wheezing or increased work of breathing that would suggest she would benefit from a nebulizer treatment. No findings that would suggest other sources of infection at this point if chest x-ray consistent with pneumonia PE would be felt to be unlikely. Final disposition pending vital signs in the ED response to IV fluids and reassessment as well as results of testing. 1600: On reassessment patient resting comfortably in bed O2 saturation is 93%. Patient's labs are notable for normal white count chest x-ray demonstrates diffuse fibrotic changes according to radiology. On repeat questioning patient states that she does have a past history of bronchiectasis. Given the lack of clear focal infiltrate on the chest x-ray the tachycardia the hypoxia than normal white count the lack of fever CT pulmonary angiography added to exclude PE and better evaluate the lung parenchyma. 1747: CT scan demonstrates no evidence for pulmonary embolism she has diffuse infiltrates that are most consistent with viral pneumonia. As noted previously patient is Covid negative. Patient has mild hypomagnesemia and this was repleted orally. With ambulation patient has an O2 saturation of 93%. She has a mild thrombocytopenia that is baseline. Given the normal white blood cell count the normal work of breathing and the oxygenation greater than 90% on room air I do not see an indication for admission to the hospital at this time. Given patient's prolonged QTc interval we will need to stop the Levaquin and we will transition the patient to a combination of Augmentin and doxycycline. Strict return precautions were discussed and understood we discussed the prolonged QTc interval and the need to discuss this with her primary care provider.
[2020-09-18 15:43] LABS: BLOOD UREA NITROGEN,BUN 18 mg/dL (7.0-18.0); CARBON DIOXIDE,CO2 24.1 mmol/L (21.0-32.0); CHLORIDE,CL 97 mmol/L (98-107); GLUCOSE RANDOM 124 mg/dL (74-106); POTASSIUM,K 3.5 mmol/L (3.5-5.1); SODIUM,NA 133 mmol/L (136-145)
--- NOTE | 2020-09-18 16:01 | CR ---
INDICATION: Cough. The patient was reportedly recently diagnosed with pneumonia yesterday. TECHNIQUE: Two-view chest. COMPARISON: None. FINDINGS: There appear to be fibrotic changes within the interstitium bilaterally. Comparison with prior studies recommended. More focal basilar fibrosis/atelectasis is suggested. No pneumothorax. No focal consolidation. Normal heart size. No pleural effusions. IMPRESSION: Widespread interstitial prominence likely related to fibrosis. An active pneumonitis is not confidently identified. Comparison with prior studies recommended as a 1st step. Dictated by Jamison Naranjo MD @ Sep 18 2020 3:57PM Signed by Dr. Jamison Naranjo @ Sep 18 2020 3:59PM
[2020-09-18] MEDS ORDERED: Iopamidol 755 MG/ML 500 ML Multipack Bottle IVPUSH STA (16:39)
[2020-09-18 16:46] VITALS: BP 136/58; PULSE 102
--- NOTE | 2020-09-18 17:21 | CT ---
INDICATION: Cough. Shortness of breath. Hypoxia. Tachycardia. Negative COVID test yesterday. The patient was diagnosed with pneumonia yesterday. TECHNIQUE: Contrast-enhanced chest CT performed using the pulmonary embolism protocol. 100 cc nonionic Isovue-370 administered. COMPARISON: Correlation is made with a two-view chest x-ray performed earlier on the same date. FINDINGS: Adequate but not optimal opacification of the pulmonary arterial tree. No large central filling defects to indicate an central pulmonary emboli. More peripheral emboli cannot be entirely excluded. The thoracic aorta is negative for aneurysm or dissection. There are multiple bilateral tiny nodules some of which are cavitary best appreciated in the upper lobes. Patchy predominantly peripheral infiltrates within the subpleural lower lobes and lingular left upper lobe as well as the right middle lobe. Minor bronchial wall thickening within the mid to lower lungs. Mildly enlarged hilar/mediastinal lymph nodes particularly in the subcarinal space likely reactive. Lymphoma is considered less likely. No pleural or pericardial effusions. The included thyroid gland and included breasts are within normal limits. No axillary or internal mammary chain lymphadenopathy. No supraclavicular lymphadenopathy. Images the upper abdomen demonstrate normal adrenal glands. There is probable splenomegaly although the spleen is incompletely included. The included skeleton is unremarkable. IMPRESSION: 1. No acute pulmonary emboli identified given the limitations of the contrast bolus. No thoracic aortic aneurysm or dissection. 2. Multiple tiny nodules in the upper lobes some cavitary in nature. More peripheral irregular nodules and opacities within the subpleural lower lobes and lingular left upper lobe as well as the right middle lobe. Given the history provided, the patient may have widespread pneumonia bilaterally potentially viral in nature. Clinical and laboratory correlation recommended. Other etiologies cannot be entirely excluded. 3. Mildly prominent hilar and subcarinal lymphadenopathy likely reactive. 4. No pleural or pericardial effusions. 5. Possible splenomegaly. Please note that all CT scans at this facility use dose modulation, iterative reconstruction, and/or weight-based dosing when appropriate to reduce radiation dose to as low as reasonably achievable. Dictated by Jamison Naranjo MD @ Sep 18 2020 5:00PM Signed by Dr. Jamison Naranjo @ Sep 18 2020 5:20PM
[2020-09-18] MEDS ORDERED: Magnesium Oxide 400 MG Tab PO ONE (17:36)
== END 2020-09-18 18:13 | disposition home or self-care (01) ==
LOC: MW.ED 14:33
DX: J18.9 Pneumonia, unspecified organism (principal); R94.31 Abnormal electrocardiogram [ECG] [EKG]; E83.42 Hypomagnesemia; I10 Essential (primary) hypertension; J45.909 Unspecified asthma, uncomplicated; Z79.899 Other long term (current) drug therapy
CPT/HCPCS: 36415; 71046; 71275; 80053; 83605; 83735; 83880; 84484; 85025; 93005; 99285; A9270; J7120; Q9967

== ENCOUNTER 2021-01-28 09:25 | Inpatient (IN) | payer MEDICARE, OTHER ==
[2021-01-28] MEDS ORDERED: Sodium Chloride 0.9% 1,000 ML IV ONE (09:41)
[2021-01-28] MEDS ORDERED: Sodium Chloride 0.9% 2.5 ML Syringe FLUSH PRN (09:41)
[2021-01-28] MEDS ORDERED: Sodium Chloride 0.9% 10 ML Syringe FLUSH PRN (09:41)
[2021-01-28] MEDS ORDERED: Cefepime 2 GM in Premix Bag 1 BAG IV ONE (10:00)
[2021-01-28] MEDS ORDERED: VANCOmycin 2 GM/400 ML 2 GM in Premix Bag 1 BAG IV ONE (10:01)
[2021-01-28 10:27] LABS: BLOOD UREA NITROGEN,BUN 13 mg/dL (7.0-18.0); CARBON DIOXIDE,CO2 28.3 mmol/L (21.0-32.0); CHLORIDE,CL 99 mmol/L (98-107); GLUCOSE RANDOM 117 mg/dL (74-106); POTASSIUM,K 3.6 mmol/L (3.5-5.1); SODIUM,NA 135 mmol/L (136-145)
--- NOTE | 2021-01-28 11:02 | CR ---
Indication: Hypoxia, shortness of breath and recurrent pneumonia Comparison: Single-view chest December 13, 2020 Technique: PA and Lateral views chest Findings: There is hyperinflation and extensive chronic interstitial changes with increasing interstitial and airspace opacities of the bilateral hemithoraces likely representing worsening multifocal infiltrates and/or pulmonary edema. There is no pneumothorax. The cardiac silhouette is enlarged with a tortuous thoracic aorta. The bony thorax is grossly intact. Impression: Hyperinflation and extensive interstitial changes with likely superimposed pulmonary edema versus multifocal infiltrates. Dictated by Timothy Welsh MD @ 01/28/2021 11:00:[address] Timothy Welsh @ Jan 28 2021 11:00AM
[2021-01-28 11:16] LABS: CORONAVIRUS COVID-19 NAA NEGATIVE (NEGATIVE); INFLUENZA A NAA NEGATIVE (NEGATIVE); INFLUENZA B NAA NEGATIVE (NEGATIVE)
[2021-01-28] MEDS ORDERED: VANCOmycin 1.5 GM/300 ML 300 ML IV SCH (11:45)
[2021-01-28] MEDS ORDERED: VANCOmycin 1.5 GM/300 ML 300 ML IV ONE (11:45)
[2021-01-28] MEDS ORDERED: Heparin Sodium 5,000 Units/ML Vial SUBCUT SCH (13:00)
[2021-01-28] MEDS ORDERED: Pneumococcal 23-Valent Conjugate Vaccine 0.5 ML Syringe IM ONE (13:20)
--- NOTE | 2021-01-28 13:40 | PCM.HP.2 ---
H&P History of Present Illness - General Date of Service: 01/28/21 Admit Problem/Dx: Admission Diagnosis/Problem Admission Diagnosis/Problem Acute respiratory failure Source of Information: Patient History Limitations: Reports: No Limitations - History of Present Illness Initial Comments - Free Text/Narative: Patient is a 70-year-old female with significant past medical history of CVID receiving IVIG every 3 weeks, hypertension on losartan/hydrochlorothiazide; presented to the ED and admitted to the floor after having worsening fatigue, shortness of breath and green productive sputum x2 to 3 days. Of note states that she has been fighting some sort of cold/sinus/chest congestion since late June and has been tested for Covid multiple times and was negative but did n otice this increasing symptoms over the weekend. Endorses has been also fighting a "sinus thing" but is not sure if this is related. Patient has been on IVIG x15 years; endorses missing her last appointment suggesting it has been more than 4 weeks since her last IVIG infusion. Endorses feeling some chills and possibly a subjective fever while at home, increasing sputum production and a generalized sense of fatigue. Denies any chest pain, diarrhea/constipation, headache, dizziness. Patient is tolerating p.o. diet and having daily bowel movements. Last full meal this a.m. ED course: Oxygen saturation 86% on 2 L; temperature of 100.4 Blood cultures drawn. Given dose of vancomycin/cefepime due to immunocompromise state. Blood cultures drawn 1 L IV fluid provided Chest x-ray: Hyperinflation and extensive interstitial changes with likely superimposed pulmonary edema versus multifocal infiltrates. Patient admitted to the general medical floor for IV hydration/IV antibiotics. Bodyaches Pain Score (Numeric/FACES): 2 - Related Data Allergies/Adverse Reactions: Allergies Allergy/AdvReac Type Severity Reaction Status Date / Time No Known Allergies Allergy Verified 01/28/21 13:18 Home Medications: Home Meds Losartan/Hydrochlorothiazide [Losartan-HCTZ 100-12.5 MG] 1 tab PO DAILY 06/19/14 [History] Past Medical History HEENT History: Reports: Allergic Rhinitis, Other (See Below) Other HEENT History: wears glasses Cardiovascular History: Reports: Hypertension Respiratory History: Reports: Asthma, Pneumonia, Recurrent Other Respiratory History: rarely uses inhaler, no asthma attack for 15 years, ho multiple pulmonary nodules Gastrointestinal History: Reports: Colon Polyp, Other (See Below) Other Gastrointestinal History: esophageal varices Genitourinary History: Reports: Urinary Incontinence Other Genitourinary History: Cystocele WHIZZER HAND History: Reports: None Musculoskeletal History: Reports: Fracture, Other (See Below) Other Musculoskeletal History: Hx. of fracture each foot R, osteopenia Neurological History: Reports: None Endocrine/Metabolic History: Reports: None, Other (See Below) Hematologic History: Reports: Blood Transfusion(s), Other (See Below) Other Hematologic History: hx of leukopenia Immunologic History: Reports: Other (See Below) Other Immunologic History: JOSSELIN autoimmune Oncologic (Cancer) History: Reports: None Dermatologic History: Reports: Eczema Other Dermatologic History: hx: eczema flare ups - Infectious Disease History Infectious Disease History: Reports: Chicken Pox, Measles - Past Surgical History Head Surgeries/Procedures: Reports: None HEENT Surgical History: Reports: Naso-Sinus Surgery, Tonsillectomy Other HEENT Surgeries/Procedures: Sinus surgery Cardiovascular Surgical History: Reports: Varicose Other Cardiovascular Surgeries/Procedures: left varicose vein stripping Respiratory Surgical History: Reports: None GI Surgical History: Reports: Colonoscopy, EGD Female Surgical History: Reports: Hysterectomy, Salpingo-Oophorectomy, Tubal Ligation Endocrine Surgical History: Reports: None Neurological Surgical History: Reports: None Musculoskeletal Surgical History: Reports: None Oncologic Surgical History: Reports: None Dermatological Surgical History: Reports: None Social & Family History - Family History Family Medical History: No Pertinent Family History - Tobacco Use Tobacco Use Status *Q: Never Tobacco User Second Hand Smoke Exposure: No - Caffeine Use Caffeine Use: Reports: Coffee Caffeine Use Comment: daily - Recreational Drug Use Recreational Drug Use: No H&P Review of Systems - Review of Systems: Review Of Systems: See Below General: Reports: Malaise HEENT: Reports: Sinus Congestion. Denies: Headaches Pulmonary: Reports: Shortness of Breath, Cough, Sputum Cardiovascular: Reports: Dyspnea on Exertion. Denies: Chest Pain Gastrointestinal: Reports: No Symptoms Genitourinary: Reports: No Symptoms Musculoskeletal: Reports: No Symptoms Skin: Reports: No Symptoms Neurological: Reports: No Symptoms Exam - Exam Exam: See Below - Vital Signs Vital Signs: Last Vital Signs Temp 100.4 F 01/28/21 09:28 Pulse Resp 22 H 01/28/21 09:28 BP 139/61 01/28/21 09:28 Pulse Ox 86 L 01/28/21 09:28 Weight: 56.518 kg - Exam Quality Assessment: Supplemental Oxygen General: Alert, Oriented, Cooperative HEENT: EOMI, Mucosa Moist & [place] Neck: Supple, Trachea Midline Lungs: Clear to Auscultation, Normal Respiratory Effort, Other (mild generlaized rhonchi while coughing on auscultation ) Cardiovascular: Regular Rate, Regular Rhythm GI/Abdominal Exam: Soft, Non-Tender Back Exam: Normal Inspection Extremities: Normal Inspection Skin: Warm Neuro Extensive - Mental Status: Alert, Oriented x3 Psychiatric: Alert, Normal Affect, Normal Mood - Patient Data Lab Results Last 24 hrs: Laboratory Results - last 24 hr 01/28/21 01/28/21 01/28/21 Range/Units 09:46 09:46 09:46 WBC 7.95 (4.0-11.0) K/uL RBC 4.10 L (4.30-5.90) M/uL Hgb 12.3 (12.0-16.0) g/dL Hct 36.8 (36.0-46.0) % MCV 89.8 (80.0-98.0) fL MCH 30.0 (27.0-32.0) pg MCHC 33.4 (31.0-37.0) g/dL RDW Std Deviation 47.7 (28.0-62.0) fl RDW Coeff of Ermelinda 15 (11.0-15.0) % Plt Count 74 L (150-400) K/uL MPV 11.00 (7.40-12.00) fL Neut % (Auto) 76.9 (48.0-80.0) % Lymph % (Auto) 5.7 L (16.0-40.0) % Hartley % (Auto) 15.7 H (0.0-15.0) % Eos % (Auto) 1.6 (0.0-7.0) % Baso % (Auto) 0.1 (0.0-1.5) % Neut # (Auto) 6.1 H (1.4-5.7) K/uL Lymph # (Auto) 0.5 L (0.6-2.4) K/uL Hartley # (Auto) 1.3 H (0.0-0.8) K/uL Eos # (Auto) 0.1 (0.0-0.7) K/uL Baso # (Auto) 0.0 (0.0-0.1) K/uL Nucleated RBC % 0.0 /100WBC Nucleated RBCs # 0 K/uL Lactate 2.0 (0.20-2.00) mmol/L Sodium 135 L (136-145) mmol/L Potassium 3.6 (3.5-5.1) mmol/L Chloride 99 (98-107) mmol/L Carbon Dioxide 28.3 (21.0-32.0) mmol/L BUN 13 (7.0-18.0) mg/dL Creatinine 0.8 (0.6-1.0) mg/dL Est Cr Clr Drug Dosing 58.46 mL/min Estimated GFR (MDRD) > 60.0 ml/min Glucose 117 H (74-106) mg/dL Calcium 8.2 L (8.5-10.1) mg/dL Total Bilirubin 1.4 H (0.2-1.0) mg/dL AST 40 H (15-37) IU/L ALT 37 (14-63) IU/L Alkaline Phosphatase 172 H (46-116) U/L Total Protein 6.6 (6.4-8.2) g/dL Albumin 2.9 L (3.4-5.0) g/dL Globulin 3.7 (2.6-4.0) g/dL Albumin/Globulin Ratio 0.8 L (0.9-1.6) Influenza Type A RNA (NEGATIVE) Influenza Type B RNA (NEGATIVE) SARS-CoV-2 RNA (ALLISON) (NEGATIVE) 01/28/21 Range/Units 10:32 WBC (4.0-11.0) K/uL RBC (4.30-5.90) M/uL Hgb (12.0-16.0) g/dL Hct (36.0-46.0) % MCV (80.0-98.0) fL MCH (27.0-32.0) pg MCHC (31.0-37.0) g/dL RDW Std Deviation (28.0-62.0) fl RDW Coeff of Ermelinda (11.0-15.0) % Plt Count (150-400) K/uL MPV (7.40-12.00) fL Neut % (Auto) (48.0-80.0) % Lymph % (Auto) (16.0-40.0) % Hartley % (Auto) (0.0-15.0) % Eos % (Auto) (0.0-7.0) % Baso % (Auto) (0.0-1.5) % Neut # (Auto) (1.4-5.7) K/uL Lymph # (Auto) (0.6-2.4) K/uL Hartley # (Auto) (0.0-0.8) K/uL Eos # (Auto) (0.0-0.7) K/uL Baso # (Auto) (0.0-0.1) K/uL Nucleated RBC % /100WBC Nucleated RBCs # K/uL Lactate (0.20-2.00) mmol/L Sodium (136-145) mmol/L Potassium (3.5-5.1) mmol/L Chloride (98-107) mmol/L Carbon Dioxide (21.0-32.0) mmol/L BUN (7.0-18.0) mg/dL Creatinine (0.6-1.0) mg/dL Est Cr Clr Drug Dosing mL/min Estimated GFR (MDRD) ml/min Glucose (74-106) mg/dL Calcium (8.5-10.1) mg/dL Total Bilirubin (0.2-1.0) mg/dL AST (15-37) IU/L ALT (14-63) IU/L Alkaline Phosphatase (46-116) U/L Total Protein (6.4-8.2) g/dL Albumin (3.4-5.0) g/dL Globulin (2.6-4.0) g/dL Albumin/Globulin Ratio (0.9-1.6) Influenza Type A RNA NEGATIVE (NEGATIVE) Influenza Type B RNA NEGATIVE (NEGATIVE) SARS-CoV-2 RNA (ALLISON) NEGATIVE (NEGATIVE) Result Diagrams: 01/28/21 09:46 01/28/21 09:46 Sepsis Event Note - Evaluation Sepsis Screening Result: Possible Sepsis Risk - Focused Exam Vital Signs: Vital Signs Temp Resp BP Pulse Ox 01/28/21 09:28 100.4 F 22 H 139/61 86 L Problem List Initiated/Reviewed/Updated: Yes Orders Last 24hrs: Active Orders 24 hr Category Date Time Status Admission Status [Patient Status] [ADT] Stat ADT 01/28/21 11:59 Active Blood Pressure Mgt: Sepsis [RC] [id number] Care 01/28/21 09:42 Active EKG Documentation Completion [RC] STAT Care 01/28/21 09:41 Active Oxygen Therapy [RC] PRN Care 01/28/21 13:00 Active VTE/DVT Education [RC] PER UNIT ROUTINE Care 01/28/21 13:00 Active Vital Signs [RC] Q4H Care 01/28/21 13:00 Active CBC WITH AUTO DIFF [HEME] AM Lab 01/29/21 05:11 Ordered CBC WITH AUTO DIFF [HEME] AM Lab 01/30/21 05:11 Ordered CBC WITH AUTO DIFF [HEME] AM Lab 01/31/21 05:11 Ordered COMPREHENSIVE METABOLIC PN,CMP [CHEM] AM Lab 01/29/21 05:11 Ordered COMPREHENSIVE METABOLIC PN,CMP [CHEM] AM Lab 01/30/21 05:11 Ordered COMPREHENSIVE METABOLIC PN,CMP [CHEM] AM Lab 01/31/21 05:11 Ordered CULTURE BLOOD [BC] Stat Lab 01/28/21 09:46 Received CULTURE BLOOD [BC] Stat Lab 01/28/21 10:08 Received CULTURE SPUTUM + SMEAR [RM] Urgent Lab 01/28/21 13:33 Ordered UA W/MICROSCOPIC [URIN] Stat Lab 01/28/21 09:42 Ordered Heparin Sodium Med 01/28/21 13:00 Active 5,000 units SUBCUT Q8H Pneumococcal Polyvalent-23 Vac [Pneumovax 23] Med 01/28/21 13:45 Once 0.5 ml SUBCUT .ONCE ONE Sodium Chloride 0.9% [Saline Flush] Med 01/28/21 09:41 Active 10 ml FLUSH ASDIRECTED PRN Sodium Chloride 0.9% [Saline Flush] Med 01/28/21 09:41 Active 2.5 ml FLUSH ASDIRECTED PRN Blood Culture x2 Reflex Set [OM.PC] Stat Oth 01/28/21 09:42 Ordered Saline Lock Insert [OM.PC] Stat Oth 01/28/21 09:42 Ordered Severe Sepsis Onset Time [OM.PC] Stat Ot 01/28/21 09:42 Ordered Resuscitation Status Routine Resus Stat 01/28/21 13:00 Ordered Medication Orders Heparin Sodium (Porcine) (Heparin Sodium 5,000 Units/Ml Vial) 5,000 units SUBCUT Q8H MISSY Pneumococcal Polyvalent Vaccine (Pneumococcal Polyvalent-23 Vaccine 0.5 Ml Sdv) 0.5 ml SUBCUT .ONCE ONE Stop: 01/28/21 13:46 Sodium Chloride (Sodium Chloride 0.9% 10 Ml Syringe) 10 ml FLUSH ASDIRECTED PRN PRN Reason: Keep Vein Open Last Admin: 01/28/21 09:54 Dose: 10 ml Documented by: SHAVON Sodium Chloride (Sodium Chloride 0.9% 2.5 Ml Syringe) 2.5 ml FLUSH ASDIRECTED PRN PRN Reason: Keep Vein Open Last Admin: 01/28/21 09:54 Dose: 2.5 ml Documented by: SHAVON Assessment/Plan Comment:: Assessment 1. Acute hypoxic respiratory failure 2. Past medical history: CVID, hypertension 3. Thrombocytopenia Plan: Admit inpatient. Full code. I's and O's per routine vitals per routine. Up ad twyla. Diet: Regular DVT prophylaxis: SCD 1. Hypoxic respiratory failure in immunocompromised patient; chest x-ray suggestive of atypical pattern; patient will be continued on cefepime and will switch over to doxycycline for atypical coverage. Sputum culture ordered Blood culture pending Currently on 1 L at bedside; continue to titrate down accordingly when appropriate IV fluids: tolerating PO ; continue to monitor for need of IV fluids 2. CVID: receives IVIG per immunology q 3 weeks ; missed last appointment; bro camelia coverage for encapsulated organisms COVID and influenza negative UTD w. COVID vaccine x 2 Sputum cultures / blood cultures pending. continue Cefepime+doxycycline 3. Thrombocytopenia: currently not bleeding ; SCD for DVT prophylaxis 4. Elevated alk phos: no transaminitis noted; concners for other etiologies including AAT, autoimmune in light of CVID; GGT ordered; will follow up once resulted
[2021-01-28] MEDS ORDERED: Pneumococcal Polyvalent-23 Vaccine 0.5 ML SDV SUBCUT ONE (13:45)
--- NOTE | 2021-01-28 14:45 | EDM.PDOC ---
ED HPI GENERAL MEDICAL PROBLEM - General Chief Complaint: Respiratory Problem Stated Complaint: SOB COUGHING Time Seen by Provider: 01/28/21 09:30 Source of Information: Reports: Patient History Limitations: Reports: No Limitations - History of Present Illness INITIAL COMMENTS - FREE TEXT/NARRATIVE: CHIEF COMPLAINT(S): Shortness of breath HISTORY OF PRESENT ILLNESS: This is a 70-year-old woman with a past medical history of combined variable immunodeficiency and recurrent pneumonia who comes to the emergency department with a chief complaint of shortness of breath. The patient states that approximately 4 days ago she started to experience increased sputum production with her cough. She states that she has been on recent antibiotics which were switched from Levaquin to a different antibiotic given prolonged QT. She states that for 2 days she had clear sputum and then over the last 2 days it started to change color to yellow, scott, brown. She denies any chest pain but states that she does have a cough. She states that she does feel short of breath. She states that is not worse with ambulation and denies any Covid exposure. She denies any chest pain, abdominal pain, nausea or vomiting. She states that she is vaccinated against coronavirus. She denies any recent travel, recent surgery, prior history of DVT or PE. She denies any use of home oxygen REVIEW OF SYSTEMS: Constitutional: Denies fever, chills. Eyes: Denies eye pain Ears, Nose, Mouth, & Throat: Denies earache Cardiovascular: Denies chest pain Respiratory: Positive for shortness of breath and productive cough Gastrointestinal: Denies Nausea, vomiting, diarrhea, hematochezia. Genitourinary: Denies hematuria Skin:Denies a rash MSK: Denies joint pain Neurological: Denies blurred vision Psychiatric: Denies depression PAST MEDICAL HISTORY: As per history of present illness and as reviewed below otherwise noncontributory. SURGICAL HISTORY: As per history of present illness and as reviewed below otherwise noncontributory. SOCIAL HISTORY: As per history of present illness and as reviewed below otherwise noncontributory. FAMILY HISTORY: As per history of present illness and as reviewed below otherwise noncontributory. EXAMINATION OF ORGAN SYSTEMS/BODY AREAS: Constitutional: Blood pressure was 139/61, heart rate 103 respiratory rate 22 with an oxygen saturation of 86% on room air. Temperature 38.0 General: Middle-aged woman who does not appear to be any acute distress. Psychiatric: Appropriate mood and affect. Eyes: No scleral icterus or conjunctival erythema ENMT: Moist mucous membranes. No pharyngeal erythema Cardiovascular: Regular, rate, and rhythm. No gallops, murmurs, or rubs. Bilateral upper extremity pulses symmetric and intact. No peripheral edema. No JVD. Respiratory: Lungs clear to auscultation bilaterally. No wheezes, rales, or rhonchi. No increased work of breathing. Gastrointestinal: Soft, non-tender, non-distended. Normoactive bowel sounds Genitourinary: No suprapubic tenderness Musculoskeletal: Normal range of motion. Skin: No lesions or abrasions. Neurological: Alert, GCS 15 MEDICAL DECISION MAKING AND COURSE IN THE ED WITH INTERPRETATION/REVIEW OF DIAGNOSTIC STUDIES: This is a 70-year-old and with a past medical history of combined variable immunodeficiency and recurrent pneumonia who comes to the emergency department with increased productive cough and shortness of breath who is hypoxic on room air. color television console monitor interpretation revealed sinus rhythm and was not tachycardic. Pulse oximetry with good waveform was 86% on room air. We did place 2 L nasal cannula on the patient and the patient's oxygen saturation did increase to greater than 94. Given the tachycardia, fever, hypoxia and tachypnea the patient will undergo a septic work-up. We'll start the patient on broad-spectrum antibiotics including cefepime and vancomycin. We will provide the patient with 30 cc/kg bolus and obtain a chest x-ray. EKG was obtained which did not reveal any acute signs of ischemia. We will obtain blood cultures. Wells Criteria Clinical signs/symptoms of DVT: No (0) PE #1 Dx or equally likely: No (0) Heart Rate >100: Yes (1.5) Immobilization for 3 days or surgery in last month: No (0) Previously Dx PE or DVT: No (0) Hemoptysis: No (0) Malignancy w/ Tx within 6 months or palliative: No (0) Wells Score: 1.5 -> low risk, we'll not proceed with work-up for PE Laboratory: CBC reveals thrombocytopenia at 74, lymphopenia with a lymphocyte count of 5.7, increased monocytes at 15.7 without any left shift. Lactic acid was 2.0. CMP reveals hyponatremia at 135, hypocalcemia at 8.2, hyperbilirubinemia at 1.4, mild elevation in AST at 40 and hypoalbuminemia at 2.9. Covid and influenza are negative. The radiological images were viewed by myself along with reading the report from the radiologist. Chest x-ray reveals patchy multifocal pneumonia. Time: 953 Twelve-lead EKG interpreted by myself. Sinus tachycardia at a rate of 103 beats per minute. Normal axis. [place] interval is 158ms. QRS duration is 83ms. ST segments are normal without elevations or depressions. No T wave inversions no Q waves present. Hypertrophy not noted. No changes demonstrated from prior EKG dated 09/18/2020. Interpretation: The sinus tachycardia On reevaluation the patient was saturating 96% on 2 L nasal cannula and her tachycardia improved. I had a discussion with the patient that given she is a new oxygen requirement I would like to admit her to the hospital for pneumonia. She was amenable to this plan. I contacted Dr. Daniel who accepted the patient f or admission DISPOSITION: Patient was admitted to the hospital in stable condition CONDITION: Serious PROCEDURES: Cardiac monitoring interpretation, pulse oximetry interpretation FINAL IMPRESSION(S)/DIAGNOSES: 1. Acute hypoxic respiratory failure likely secondary to pneumonia Critical Care Procedure Note Authorized and performed by: Jt Cotter M.D. Critical Care Time: 30 minutes Due to a high probability of clinically significant, life threatening deterioration, the patient required my highest level of preparedness to intervene emergently and I personally spent this critical care time directly and personally managing the patient. This critical care time included obtaining a history, examining the patient, pulse oximetry; ordering and review of studies; arranging urgent treatment with development of a management plan; evaluation of a patients reponse to treatment; frequent assessment; and discussions with other providers. This critical care time was performed to assess and manage the high probability of imminent, life threatening deterioration that could result in multiorgan failure. It was exclusive of separate billable procedures and treating other patients. Please see MDM section and rest of the note for further information on patient assessment and treatment. Please see MDM section and rest of the note for further information on patient assessment and treatment. Jt Cotter M.D. Bodyaches Pain Score (Numeric/FACES): 2 - Related Data Allergies Allergy/AdvReac Type Severity Reaction Status Date / Time No Known Allergies Allergy Verified 01/28/21 13:18 Home Meds: Home Meds Losartan/Hydrochlorothiazide [Losartan-HCTZ 100-12.5 MG] 1 tab PO DAILY 06/19/14 [History] Past Medical History HEENT History: Reports: Allergic Rhinitis, Other (See Below) Other HEENT History: wears glasses Cardiovascular History: Reports: Hypertension Respiratory History: Reports: Asthma, Pneumonia, Recurrent Other Respiratory History: rarely uses inhaler, no asthma attack for 15 years, ho multiple pulmonary nodules Gastrointestinal History: Reports: Colon Polyp, Other (See Below) Other Gastrointestinal History: esophageal varices Genitourinary History: Reports: Urinary Incontinence Other Genitourinary History: Cystocele [employer] History: Reports: None Musculoskeletal History: Reports: Fracture, Other (See Below) Other Musculoskeletal History: Hx. of fracture each foot R, osteopenia Neurological History: Reports: None Endocrine/Metabolic History: Reports: None, Other (See Below) Hematologic History: Reports: Blood Transfusion(s), Other (See Below) Other Hematologic History: hx of leukopenia Immunologic History: Reports: Other (See Below) Other Immunologic History: JOSSELIN autoimmune Oncologic (Cancer) History: Reports: None Dermatologic History: Reports: Eczema Other Dermatologic History: hx: eczema flare ups - Infectious Disease History Infectious Disease History: Reports: Chicken Pox, Measles - Past Surgical History Head Surgeries/Procedures: Reports: None HEENT Surgical History: Reports: Naso-Sinus Surgery, Tonsillectomy Other HEENT Surgeries/Procedures: Sinus surgery Cardiovascular Surgical History: Reports: Varicose Other Cardiovascular Surgeries/Procedures: left varicose vein stripping Respiratory Surgical History: Reports: None GI Surgical History: Reports: Colonoscopy, EGD Female Surgical History: Reports: Hysterectomy, Salpingo-Oophorectomy, Tubal Ligation Endocrine Surgical History: Reports: None Neurological Surgical History: Reports: None Musculoskeletal Surgical History: Reports: None Oncologic Surgical History: Reports: None Dermatological Surgical History: Reports: None Social & Family History - Family History Family Medical History: No Pertinent Family History - Tobacco Use Tobacco Use Status *Q: Never Tobacco User Second Hand Smoke Exposure: No - Caffeine Use Caffeine Use: Reports: Coffee Caffeine Use Comment: daily - Recreational Drug Use Recreational Drug Use: No ED ROS GENERAL - Review of Systems Review Of Systems: See Below ED EXAM, GENERAL - Physical Exam Exam: See Below GI/Abdominal: Soft, Non-Tender Back Exam: Normal Inspection Extremities: Normal Inspection Course - Vital Signs Last Recorded V/S: Last Vital Signs Temp 37.3 C 01/28/21 13:00 Pulse 78 01/28/21 13:00 Resp 16 01/28/21 13:00 BP 128/80 01/28/21 13:00 Pulse Ox 96 01/28/21 13:00 - Orders/Labs/Meds Orders: Active Orders 24 hr Category Date Time Status Blood Pressure Mgt: Sepsis [RC] Q15MX2 Care 01/28/21 09:42 Active EKG Documentation Completion [RC] STAT Care 01/28/21 09:41 Active CULTURE BLOOD [BC] Stat Lab 01/28/21 09:46 Received CULTURE BLOOD [BC] Stat Lab 01/28/21 10:08 Received UA W/MICROSCOPIC [URIN] Stat Lab 01/28/21 09:42 Ordered Sodium Chloride 0.9% [Saline Flush] Med 01/28/21 09:41 Active 10 ml FLUSH ASDIRECTED PRN Sodium Chloride 0.9% [Saline Flush] Med 01/28/21 09:41 Active 2.5 ml FLUSH ASDIRECTED PRN Blood Culture x2 Reflex Set [OM.PC] Stat Oth 01/28/21 09:42 Ordered Saline Lock Insert [OM.PC] Stat Oth 01/28/21 09:42 Ordered Severe Sepsis Onset Time [OM.PC] Stat Oth 01/28/21 09:42 Ordered Medication Orders Heparin Sodium (Porcine) (Heparin Sodium 5,000 Units/Ml Vial) 5,000 units SUBCUT Q8H [facility] Last Admin: 01/28/21 13:58 Dose: 5,000 units Documented by: ESDRAS Cefepime HCl 2 gm/ Premix 50 mls @ 100 mls/hr IV Q8H [facility] Doxycycline Hyclate 100 mg/ (Sodium Chloride) 100 mls @ 100 mls/hr IV Q12H [facility] Sodium Chloride (Sodium Chloride 0.9% 10 Ml Syringe) 10 ml FLUSH ASDIRECTED PRN PRN Reason: Keep Vein Open Last Admin: 01/28/21 09:54 Dose: 10 ml Documented by: SHAVON Sodium Chloride (Sodium Chloride 0.9% 2.5 Ml Syringe) 2.5 ml FLUSH ASDIRECTED PRN PRN Reason: Keep Vein Open Last Admin: 01/28/21 09:54 Dose: 2.5 ml Documented by: SHAVON Labs: Laboratory Tests 01/28/21 01/28/21 01/28/21 Range/Units 09:46 09:46 09:46 WBC 7.95 (4.0-11.0) K/uL RBC 4.10 L (4.30-5.90) M/uL Hgb 12.3 (12.0-16.0) g/dL Hct 36.8 (36.0-46.0) % MCV 89.8 (80.0-98.0) fL MCH 30.0 (27.0-32.0) pg MCHC 33.4 (31.0-37.0) g/dL RDW Std Deviation 47.7 (28.0-62.0) fl RDW Coeff of Ermelinda 15 (11.0-15.0) % Plt Count 74 L (150-400) K/uL MPV 11.00 (7.40-12.00) fL Neut % (Auto) 76.9 (48.0-80.0) % Lymph % (Auto) 5.7 L (16.0-40.0) % Isabella % (Auto) 15.7 H (0.0-15.0) % Eos % (Auto) 1.6 (0.0-7.0) % Baso % (Auto) 0.1 (0.0-1.5) % Neut # (Auto) 6.1 H (1.4-5.7) K/uL Lymph # (Auto) 0.5 L (0.6-2.4) K/uL Isabella # (Auto) 1.3 H (0.0-0.8) K/uL Eos # (Auto) 0.1 (0.0-0.7) K/uL Baso # (Auto) 0.0 (0.0-0.1) K/uL Nucleated RBC % 0.0 /100WBC Nucleated RBCs # 0 K/uL Lactate 2.0 (0.20-2.00) mmol/L Sodium 135 L (136-145) mmol/L Potassium 3.6 (3.5-5.1) mmol/L Chloride 99 (98-107) mmol/L Carbon Dioxide 28.3 (21.0-32.0) mmol/L BUN 13 (7.0-18.0) mg/dL Creatinine 0.8 (0.6-1.0) mg/dL Est Cr Clr Drug Dosing 58.46 mL/min Estimated GFR (MDRD) > 60.0 ml/min Glucose 117 H (74-106) mg/dL Calcium 8.2 L (8.5-10.1) mg/dL Total Bilirubin 1.4 H (0.2-1.0) mg/dL AST 40 H (15-37) IU/L ALT 37 (14-63) IU/L Alkaline Phosphatase 172 H (46-116) U/L Total Protein 6.6 (6.4-8.2) g/dL Albumin 2.9 L (3.4-5.0) g/dL Globulin 3.7 (2.6-4.0) g/dL Albumin/Globulin Ratio 0.8 L (0.9-1.6) Influenza Type A RNA (NEGATIVE) Influenza Type B RNA (NEGATIVE) SARS-CoV-2 RNA ([facility]) (NEGATIVE) 01/28/21 Range/Units 10:32 WBC (4.0-11.0) K/uL RBC (4.30-5.90) M/uL Hgb (12.0-16.0) g/dL Hct (36.0-46.0) % MCV (80.0-98.0) fL MCH (27.0-32.0) pg MCHC (31.0-37.0) g/dL RDW Std Deviation (28.0-62.0) fl RDW Coeff of Ermelinda (11.0-15.0) % Plt Count (150-400) K/uL MPV (7.40-12.00) fL Neut % (Auto) (48.0-80.0) % Lymph % (Auto) (16.0-40.0) % Isabella % (Auto) (0.0-15.0) % Eos % (Auto) (0.0-7.0) % Baso % (Auto) (0.0-1.5) % Neut # (Auto) (1.4-5.7) K/uL Lymph # (Auto) (0.6-2.4) K/uL Isabella # (Auto) (0.0-0.8) K/uL Eos # (Auto) (0.0-0.7) K/uL Baso # (Auto) (0.0-0.1) K/uL Nucleated RBC % /100WBC Nucleated RBCs # K/uL Lactate (0.20-2.00) mmol/L Sodium (136-145) mmol/L Potassium (3.5-5.1) mmol/L Chloride (98-107) mmol/L Carbon Dioxide (21.0-32.0) mmol/L BUN (7.0-18.0) mg/dL Creatinine (0.6-1.0) mg/dL Est Cr Clr Drug Dosing mL/min Estimated GFR (MDRD) ml/min Glucose (74-106) mg/dL Calcium (8.5-10.1) mg/dL Total Bilirubin (0.2-1.0) mg/dL AST (15-37) IU/L ALT (14-63) IU/L Alkaline Phosphatase (46-116) U/L Total Protein (6.4-8.2) g/dL Albumin (3.4-5.0) g/dL Globulin (2.6-4.0) g/dL Albumin/Globulin Ratio (0.9-1.6) Influenza Type A RNA NEGATIVE (NEGATIVE) Influenza Type B RNA NEGATIVE (NEGATIVE) SARS-CoV-2 RNA ([facility]) NEGATIVE (NEGATIVE) Meds: Medications Generic Name Dose Route Start Last Admin Trade Name Freq PRN Reason Stop Dose Admin Heparin Sodium (Porcine) 5,000 units 01/28/21 13:00 01/28/21 13:58 Heparin Sodium 5,000 Units/Ml Vial SUBCUT 5,000 units Q8H [facility] Administration Cefepime HCl 2 gm/ Premix 50 mls @ 100 mls/hr 01/28/21 18:00 IV Q8H [facility] Doxycycline Hyclate 100 mg/ 100 mls @ 100 mls/hr 01/28/21 15:00 Sodium Chloride IV Q12H [facility] Sodium Chloride 10 ml 01/28/21 09:41 01/28/21 09:54 Sodium Chloride 0.9% 10 Ml Syringe FLUSH 10 ml ASDIRECTED PRN Administration Keep Vein Open Sodium Chloride 2.5 ml 01/28/21 09:41 01/28/21 09:54 Sodium Chloride 0.9% 2.5 Ml Syringe FLUSH 2.5 ml ASDIRECTED PRN Administration Keep Vein Open Discontinued Medications Generic Name Dose Route Start Last Admin Trade Name Freq PRN Reason Stop Dose Admin Sodium Chloride 1,000 mls @ 1,500 mls/hr 01/28/21 09:41 01/28/21 09:54 Normal Saline IV 01/28/21 10:20 1,500 mls/hr BOLUS ONE Administration Protocol Cefepime HCl 2 gm/ Premix 50 mls @ 100 mls/hr 01/28/21 10:00 01/28/21 10:53 IV 01/28/21 10:29 100 mls/hr ONETIME ONE Administration Vancomycin HCl 300 mls @ 200 mls/hr 01/28/21 11:45 01/28/21 11:37 Vancomycin 1.5 Gm/300 Ml IV 01/28/21 13:14 200 mls/hr ONETIME ONE Administration Pneumococcal Polyvalent Vaccine 0.5 ml 01/28/21 13:45 Pneumococcal Polyvalent-23 Vaccine 0.5 Ml Sdv SUBCUT 01/28/21 13:46 .ONCE ONE Departure - Departure Time of Disposition: 11:59 Disposition: Admitted As Inpatient 67 Condition: Serious Clinical Impression: Pneumonia - Discharge Information Sepsis Event Note (ED) - Evaluation Sepsis Screening Result: Possible Sepsis Risk - Focused Exam Vital Signs: Vital Signs Temp Resp BP Pulse Ox 01/28/21 09:28 38.0 C 22 H 139/61 86 L - My Orders Last 24 Hours: My Active Orders 01/28/21 09:41 EKG Documentation Completion [RC] STAT Sodium Chloride 0.9% [Saline Flush] 10 ml FLUSH ASDIRECTED PRN Sodium Chloride 0.9% [Saline Flush] 2.5 ml FLUSH ASDIRECTED PRN 01/28/21 09:42 Blood Pressure Mgt: Sepsis [RC] Q15MX2 UA W/MICROSCOPIC [URIN] Stat Blood Culture x2 Reflex Set [OM.PC] Stat Saline Lock Insert [OM.PC] Stat Severe Sepsis Onset Time [OM.PC] Stat 01/28/21 09:46 CULTURE BLOOD [BC] Stat 01/28/21 10:08 CULTURE BLOOD [BC] Stat - Assessment/Plan Last 24 Hours: My Active Orders 01/28/21 09:41 EKG Documentation Completion [RC] STAT Sodium Chloride 0.9% [Saline Flush] 10 ml FLUSH ASDIRECTED PRN Sodium Chloride 0.9% [Saline Flush] 2.5 ml FLUSH ASDIRECTED PRN 01/28/21 09:42 Blood Pressure Mgt: Sepsis [RC] Q15MX2 UA W/MICROSCOPIC [URIN] Stat Blood Culture x2 Reflex Set [OM.PC] Stat Saline Lock Insert [OM.PC] Stat Severe Sepsis Onset Time [OM.PC] Stat 01/28/21 09:46 CULTURE BLOOD [BC] Stat 01/28/21 10:08 CULTURE BLOOD [BC] Stat
[2021-01-28] MEDS: Doxycycline 100 MG in Sodium Chloride 0.9% 100 ML IV SCH (15:27)
[2021-01-28] MEDS ORDERED: Acetaminophen 500 MG Tab PO PRN (16:24)
[2021-01-28] MEDS: Cefepime 2 GM in Premix Bag 1 BAG IV SCH (17:30)
[2021-01-28] MEDS: Benzonatate 100 MG Cap PO PRN (17:41)
[2021-01-29] MEDS: Benzonatate 100 MG Cap PO PRN (02:01)
[2021-01-29] MEDS: Cefepime 2 GM in Premix Bag 1 BAG IV SCH ×2 (02:04→09:50)
[2021-01-29] MEDS: Doxycycline 100 MG in Sodium Chloride 0.9% 100 ML IV SCH (03:23)
[2021-01-29 06:22] LABS: BLOOD UREA NITROGEN,BUN 11 mg/dL (7.0-18.0); CARBON DIOXIDE,CO2 27.2 mmol/L (21.0-32.0); CHLORIDE,CL 102 mmol/L (98-107); GLUCOSE RANDOM 88 mg/dL (74-106); POTASSIUM,K 4.2 mmol/L (3.5-5.1); SODIUM,NA 136 mmol/L (136-145)
[2021-01-29] MEDS ORDERED: Albuterol/Ipratropium 3.0-0.5 MG/3 ML Neb Soln NEB PRN (07:49)
[2021-01-29 08:35] VITALS: BP 124/61; PULSE 79
--- NOTE | 2021-01-29 10:48 | PCM.DCSUM1 ---
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 Of note patient states that she has been fighting some sort of cold/sinus/chest congestion since June and despite being tested negative for Covid and influenza she still continues to have the symptoms. ED course: Oxygen saturation of 86% on 2 L; febrile at 100.4. Blood cultures drawn x1 day negative. Was started on vancomycin and cefepime secondary to history of CVI D/immunocompromise state. Was given 1 L fluid with additional liter while on general medical floor. Chest x-ray suggested hyperinflation and extensive interstitial changes with likely superimposed pulmonary edema versus multifocal infiltrates. Patient was started on vancomycin and cefepime (encapsulated and atypical coverage) . Throughout stay patient did wean down off of oxygen back on to room air; Coughing fits have improved and patient generally looked clinically stable. Was advised patient to stay for additional 24 hours since she was only afebrile for less than 24 hours; patient otherwise requested to go home as she says she is feeling better. Sputum cultures : gram positive cocci; culture still pending ; pt requested discharge prior to complete results Patient was discharged on oral doxycycline/cefdinir and was advised to follow-up with primary care. Appointment w. primary care already established. Sent home on cefdinir doxycycline, fluticasone, benzonatate. Advised to continue using incentive spirometry and to drink plenty of fluids Advised return to the ED if worsening shortness of breath, chest pain, headache Unsure of previous work-up by primary care provider (do not have medical records from outside facility and pt is unsure of her medical history) ; concerns for other causes for recurrent infectious process including alpha-1 antitrypsin; worsening C VID despite IVIG; etc. May require repeat CT imaging , other work up . Currently receiving IVIG. Consider AAT deficiency or other etiologies for repeated sino-bronchopulmonary infections Discharge condition: Stable Follow-up: PCP and possibly pulmonology, - Discharge Data Discharge Date: 01/29/21 Discharge Disposition: Home, Self-Care 01 Condition: Fair - Referral to Home Health Primary Care Physician: Carlos Munoz MD - Patient Instructions Diet: Usual Diet as Tolerated Notify Provider of: Fever Other/Special Instructions: Please drink plenty of fluids. Complete the antibiotics and follow up with your PCP as sheduled. Continue to use your incentive spirometry apparatus to help you take deep breaths. use the flonase nasal spray daily to help with nasal /sinus congestion. if you become severly short of breath proceed to the emergency department immediately - Discharge Plan Prescriptions/Med Rec: Benzonatate 100 mg PO BEDTIME PRN 10 Days #10 capsule PRN Reason: Cough Fluticasone Furoate [Flonase Sensimist] 5.9 ml NS DAILY 14 Days #1 bottle Cefdinir [Omnicef] 300 mg PO BID 7 Days #14 cap Doxycycline Hyclate [Vibramycin] 100 mg PO BID 10 Days #20 capsule Home Medications: Home Meds Losartan/Hydrochlorothiazide [Losartan-HCTZ 100-12.5 MG] 1 tab PO DAILY 06/19/14 [History] Acetaminophen [Tylenol Extra Strength] 500 mg PO Q4H PRN tablet 01/29/21 [Rx] Benzonatate 100 mg PO BEDTIME PRN 10 Days #10 capsule 01/29/21 [Rx] Cefdinir [Omnicef] 300 mg PO BID 7 Days #14 cap 01/29/21 [Rx] Doxycycline Hyclate [Vibramycin] 100 mg PO BID 10 Days #20 capsule 01/29/21 [Rx] Fluticasone Furoate [Flonase Sensimist] 5.9 ml NS DAILY 14 Days #1 bottle 01/29/21 [Rx] Patient Handouts: Cefdinir Capsules, Fluticasone nasal spray, Doxycycline tablets or capsules, Community-Acquired Pneumonia, Adult, Benzonatate capsules Forms: ED Department Discharge Referrals: Carlos Munoz MD [Primary Care Provider] - 02/08/21 12:30 pm - Discharge Summary/Plan Comment DC Time >30 min.: No - Patient Data Vitals - Most Recent: Last Vital Signs Temp 98.3 F 01/29/21 08:00 Pulse 79 01/29/21 08:00 Resp 20 01/29/21 08:00 BP 124/61 01/29/21 08:00 Pulse Ox 92 L 01/29/21 08:00 Weight - Most Recent: 56.518 kg I&O - Last 24 hours: Intake & Output 01/28/21 01/29/21 01/29/21 22:59 06:59 14:59 Intake Total 500 950 150 Output Total 450 1100 Balance 50 -150 150 Lab Results - Last 24 hrs: Laboratory Results - last 24 hr 01/28/21 01/28/21 01/28/21 Range/Units 09:46 09:46 10:32 WBC 7.95 (4.0-11.0) K/uL RBC 4.10 L (4.30-5.90) M/uL Hgb 12.3 (12.0-16.0) g/dL Hct 36.8 (36.0-46.0) % MCV 89.8 (80.0-98.0) fL MCH 30.0 (27.0-32.0) pg MCHC 33.4 (31.0-37.0) g/dL RDW Std Deviation 47.7 (28.0-62.0) fl RDW Coeff of [place] 15 (11.0-15.0) % Plt Count 74 L (150-400) K/uL MPV 11.00 (7.40-12.00) fL Neut % (Auto) 76.9 (48.0-80.0) % Lymph % (Auto) 5.7 L (16.0-40.0) % [place] % (Auto) 15.7 H (0.0-15.0) % Eos % (Auto) 1.6 (0.0-7.0) % Baso % (Auto) 0.1 (0.0-1.5) % Neut # (Auto) 6.1 H (1.4-5.7) K/uL Lymph # (Auto) 0.5 L (0.6-2.4) K/uL [place] # (Auto) 1.3 H (0.0-0.8) K/uL Eos # (Auto) 0.1 (0.0-0.7) K/uL Baso # (Auto) 0.0 (0.0-0.1) K/uL Nucleated RBC % 0.0 /100WBC Nucleated RBCs # 0 K/uL Sodium (136-145) mmol/L Potassium (3.5-5.1) mmol/L Chloride (98-107) mmol/L Carbon Dioxide (21.0-32.0) mmol/L BUN (7.0-18.0) mg/dL Creatinine (0.6-1.0) mg/dL Est Cr Clr Drug Dosing mL/min Estimated GFR (MDRD) ml/min Glucose (74-106) mg/dL Calcium (8.5-10.1) mg/dL Total Bilirubin (0.2-1.0) mg/dL GGT 73 (5-85) U/L AST (15-37) IU/L ALT (14-63) IU/L Alkaline Phosphatase (46-116) U/L Total Protein (6.4-8.2) g/dL Albumin (3.4-5.0) g/dL Globulin (2.6-4.0) g/dL Albumin/Globulin Ratio (0.9-1.6) Urine Color Urine Appearance Urine pH (5.0-8.0) Ur Specific [place] (1.001-1.035) Urine Protein (NEGATIVE) mg/dL Urine Glucose (UA) (NEGATIVE) mg/dL Urine Ketones (NEGATIVE) mg/dL Urine Occult Blood (NEGATIVE) Urine Nitrite (NEGATIVE) Urine Bilirubin (NEGATIVE) Urine Urobilinogen (<2.0) EU/dL Ur Leukocyte Esterase (NEGATIVE) Urine RBC (0-2/HPF) Urine WBC (0-5/HPF) Ur Epithelial Cells (NONE-FEW) Urine Bacteria (NEGATIVE) Influenza Type A RNA NEGATIVE (NEGATIVE) Influenza Type B RNA NEGATIVE (NEGATIVE) SARS-CoV-2 RNA ([place]) NEGATIVE (NEGATIVE) 01/28/21 01/29/21 01/29/21 Range/Units 16:42 05:25 05:25 WBC 4.19 (4.0-11.0) K/uL RBC 3.54 L (4.30-5.90) M/uL Hgb 10.4 L (12.0-16.0) g/dL Hct 31.7 L (36.0-46.0) % MCV 89.5 (80.0-98.0) fL MCH 29.4 (27.0-32.0) pg MCHC 32.8 (31.0-37.0) g/dL RDW Std Deviation 47.4 (28.0-62.0) fl RDW Coeff of [place] 14 (11.0-15.0) % Plt Count 63 L (150-400) K/uL MPV 11.10 (7.40-12.00) fL Neut % (Auto) 61.3 (48.0-80.0) % Lymph % (Auto) 13.4 L (16.0-40.0) % [place] % (Auto) 18.6 H (0.0-15.0) % Eos % (Auto) 6.0 (0.0-7.0) % Baso % (Auto) 0.7 (0.0-1.5) % Neut # (Auto) 2.6 (1.4-5.7) K/uL Lymph # (Auto) 0.6 (0.6-2.4) K/uL [place] # (Auto) 0.8 (0.0-0.8) K/uL Eos # (Auto) 0.3 (0.0-0.7) K/uL Baso # (Auto) 0.0 (0.0-0.1) K/uL Nucleated RBC % 0.0 /100WBC Nucleated RBCs # 0 K/uL Sodium 136 (136-145) mmol/L Potassium 4.2 (3.5-5.1) mmol/L Chloride 102 (98-107) mmol/L Carbon Dioxide 27.2 (21.0-32.0) mmol/L BUN 11 (7.0-18.0) mg/dL Creatinine 0.7 (0.6-1.0) mg/dL Est Cr Clr Drug Dosing 67.68 mL/min Estimated GFR (MDRD) > 60.0 ml/min Glucose 88 (74-106) mg/dL Calcium 7.7 L (8.5-10.1) mg/dL Total Bilirubin 1.4 H (0.2-1.0) mg/dL GGT (5-85) U/L AST 30 (15-37) IU/L ALT 26 (14-63) IU/L Alkaline Phosphatase 148 H (46-116) U/L Total Protein 5.5 L (6.4-8.2) g/dL Albumin 2.3 L (3.4-5.0) g/dL Globulin 3.2 (2.6-4.0) g/dL Albumin/Globulin Ratio 0.7 L (0.9-1.6) Urine Color YELLOW Urine Appearance CLEAR Urine pH 6.0 (5.0-8.0) Ur Specific [place] 1.015 (1.001-1.035) Urine Protein NEGATIVE (NEGATIVE) mg/dL Urine Glucose (UA) NEGATIVE (NEGATIVE) mg/dL Urine Ketones NEGATIVE (NEGATIVE) mg/dL Urine Occult Blood NEGATIVE (NEGATIVE) Urine Nitrite NEGATIVE (NEGATIVE) Urine Bilirubin NEGATIVE (NEGATIVE) Urine Urobilinogen 0.2 (<2.0) EU/dL Ur Leukocyte Esterase SMALL H (NEGATIVE) Urine RBC 0-1 (0-2/HPF) Urine WBC 1-3 (0-5/HPF) Ur Epithelial Cells RARE (NONE-FEW) Urine Bacteria RARE (NEGATIVE) Influenza Type A RNA (NEGATIVE) Influenza Type B RNA (NEGATIVE) SARS-CoV-2 RNA ([place]) (NEGATIVE) JACKI Results - Last 24 hrs: Microbiology 01/28/21 10:08 Aerobic Blood Culture - Preliminary Blood - Venous - Lab Draw NO GROWTH AFTER 1 DAY Anaerobic Blood Culture - Preliminary NO GROWTH AFTER 1 DAY 01/28/21 09:46 Aerobic Blood Culture - Preliminary Blood - Venous NO GROWTH AFTER 1 DAY Anaerobic Blood Culture - Preliminary NO GROWTH AFTER 1 DAY 01/28/21 15:31 Gram Stain - Preliminary Sputum - Expectorated Med Orders - Current: Current Medications Acetaminophen (Acetaminophen 500 Mg Tab) 500 mg PO Q4H PRN PRN Reason: Fever Last Admin: 01/28/21 17:41 Dose: 500 mg Documented by: Albuterol/Ipratropium (Albuterol/Ipratropium 3.0-0.5 Mg/3 Ml Neb Soln) 3 ml NEB Q4HRRT PRN PRN Reason: Cough Benzonatate (Benzonatate 100 Mg Cap) 100 mg PO TID PRN PRN Reason: Cough Last Admin: 01/29/21 02:01 Dose: 100 mg Documented by: Cefepime HCl 2 gm/ Premix 50 mls @ 100 mls/hr IV Q8H COUNTS INCLUDE 234 BEDS AT THE [facility] Last Admin: 01/29/21 09:50 Dose: 100 mls/hr Documented by: Doxycycline Hyclate 100 mg/ (Sodium Chloride) 100 mls @ 100 mls/hr IV Q12H COUNTS INCLUDE 234 BEDS AT THE [facility] Last Admin: 01/29/21 03:23 Dose: 100 mls/hr Documented by: Pneumococcal Polyvalent Vaccine (Pneumococcal Polyvalent-23 Vaccine 0.5 Ml Sdv) 0.5 ml SUBCUT .ONCE ONE Stop: 01/29/21 11:31 Sodium Chloride (Sodium Chloride 0.9% 10 Ml Syringe) 10 ml FLUSH ASDIRECTED PRN PRN Reason: Keep Vein Open Last Admin: 01/28/21 09:54 Dose: 10 ml Documented by: Sodium Chloride (Sodium Chloride 0.9% 2.5 Ml Syringe) 2.5 ml FLUSH ASDIRECTED PRN PRN Reason: Keep Vein Open Last Admin: 01/28/21 09:54 Dose: 2.5 ml Documented by: Discontinued Medications Heparin Sodium (Porcine) (Heparin Sodium 5,000 Units/Ml Vial) 5,000 units SUBCUT Q8H MISSY Last Admin: 01/28/21 13:58 Dose: 5,000 units Documented by: Sodium Chloride (Normal Saline) 1,000 mls @ 1,500 mls/hr IV BOLUS ONE; Protocol Stop: 01/28/21 10:20 Last Admin: 01/28/21 09:54 Dose: 1,500 mls/hr Documented by: Cefepime HCl 2 gm/ Premix 50 mls @ 100 mls/hr IV ONETIME ONE Stop: 01/28/21 10:29 Last Admin: 01/28/21 10:53 Dose: 100 mls/hr Documented by: Vancomycin HCl (Vancomycin 1.5 Gm/300 Ml) 300 mls @ 200 mls/hr IV ONETIME ONE Stop: 01/28/21 13:14 Last Admin: 01/28/21 11:37 Dose: 200 mls/hr Documented by: <Jae Daniel - Last Filed: 02/01/21 01:16> Discharge Summary - Referral to Home Health Primary Care Physician: Carlos Munoz MD - Patient Data Vitals - Most Recent: Last Vital Signs Temp 36.8 C 01/29/21 08:00 Pulse 79 01/29/21 08:00 Resp 20 01/29/21 08:00 BP 124/61 01/29/21 08:00 Pulse Ox 92 L 01/29/21 08:00 JACKI Results - Last 24 hrs: Microbiology 01/28/21 15:31 Gram Stain - Final Sputum - Expectorated Sputum Culture - Final Normal Respiratory Karen 01/28/21 10:08 Aerobic Blood Culture - Preliminary Blood - Venous - Lab Draw NO GROWTH AFTER 3 DAYS Anaerobic Blood Culture - Preliminary NO GROWTH AFTER 3 DAYS 01/28/21 09:46 Aerobic Blood Culture - Preliminary Blood - Venous NO GROWTH AFTER 3 DAYS Anaerobic Blood Culture - Preliminary NO GROWTH AFTER 3 DAYS Med Orders - Current: Current Medications Discontinued Medications Acetaminophen (Acetaminophen 500 Mg Tab) 500 mg PO Q4H PRN PRN Reason: Fever Last Admin: 01/28/21 17:41 Dose: 500 mg Documented by: Albuterol/Ipratropium (Albuterol/Ipratropium 3.0-0.5 Mg/3 Ml Neb Soln) 3 ml NEB Q4HRRT PRN PRN Reason: Cough Benzonatate (Benzonatate 100 Mg Cap) 100 mg PO TID PRN PRN Reason: Cough Last Admin: 01/29/21 02:01 Dose: 100 mg Documented by: Heparin Sodium (Porcine) (Heparin Sodium 5,000 Units/Ml Vial) 5,000 units SUBCUT Q8H COUNTS INCLUDE 234 BEDS AT THE [facility] Last Admin: 01/28/21 13:58 Dose: 5,000 units Documented by: Sodium Chloride (Normal Saline) 1,000 mls @ 1,500 mls/hr IV BOLUS ONE; Protocol Stop: 01/28/21 10:20 Last Admin: 01/28/21 09:54 Dose: 1,500 mls/hr Documented by: Cefepime HCl 2 gm/ Premix 50 mls @ 100 mls/hr IV ONETIME ONE Stop: 01/28/21 10:29 Last Admin: 01/28/21 10:53 Dose: 100 mls/hr Documented by: Vancomycin HCl (Vancomycin 1.5 Gm/300 Ml) 300 mls @ 200 mls/hr IV ONETIME ONE Stop: 01/28/21 13:14 Last Admin: 01/28/21 11:37 Dose: 200 mls/hr Documented by: Cefepime HCl 2 gm/ Premix 50 mls @ 100 mls/hr IV Q8H COUNTS INCLUDE 234 BEDS AT THE [facility] Last Admin: 01/29/21 09:50 Dose: 100 mls/hr Documented by: Doxycycline Hyclate 100 mg/ (Sodium Chloride) 100 mls @ 100 mls/hr IV Q12H COUNTS INCLUDE 234 BEDS AT THE [facility] Last Admin: 01/29/21 03:23 Dose: 100 mls/hr Documented by: Pneumococcal Polyvalent Vaccine (Pneumococcal Polyvalent-23 Vaccine 0.5 Ml Sdv) 0.5 ml SUBCUT .ONCE ONE Stop: 01/29/21 11:31 Last Admin: 01/29/21 11:17 Dose: 0.5 ml Documented by: Sodium Chloride (Sodium Chloride 0.9% 10 Ml Syringe) 10 ml FLUSH ASDIRECTED PRN PRN Reason: Keep Vein Open Last Admin: 01/28/21 09:54 Dose: 10 ml Documented by: Sodium Chloride (Sodium Chloride 0.9% 2.5 Ml Syringe) 2.5 ml FLUSH ASDIRECTED PRN PRN Reason: Keep Vein Open Last Admin: 01/28/21 09:54 Dose: 2.5 ml Documented by: - Free Text/Narrative Note: I have seen and evaluated the patient. I have discussed findings and treatment plan with resident. I agree with the assessment and plan as outlined in the following note.
[2021-01-29] MEDS ORDERED: Pneumococcal Polyvalent-23 Vaccine 0.5 ML SDV SUBCUT ONE (11:30)
== END 2021-01-29 12:15 | disposition home or self-care (01) | DRG 189 ==
LOC: MW.ED 09:25 → MW.MS 11:59
PROVIDERS: ADMIT Internal Medicine; ATTEND Internal Medicine
DX: J18.9 Pneumonia, unspecified organism (principal); J96.01 Acute respiratory failure with hypoxia; I10 Essential (primary) hypertension; J45.909 Unspecified asthma, uncomplicated; R32 Unspecified urinary incontinence; D83.9 Common variable immunodeficiency, unspecified; Z86.010 Personal history of colon polyps; L30.9 Dermatitis, unspecified; Z79.899 Other long term (current) drug therapy; Z87.01 Personal history of pneumonia (recurrent); Z90.89 Acquired absence of other organs; Z90.710 Acquired absence of both cervix and uterus; Z90.722 Acquired absence of ovaries, bilateral; Z98.51 Tubal ligation status; Z98.890 Other specified postprocedural states; Z20.822 Contact with and (suspected) exposure to COVID-19; Z86.16 Personal history of COVID-19; D69.6 Thrombocytopenia, unspecified
CPT/HCPCS: 0240U; 36415; 71046; 80053; 81001; 82977; 83605; 85025; 87040; 87070; 87205; 90732; 93005; 96365; 96367; 99285-25; 99291; A9270-GY; J0692; J1644; J3370; J3490; J7030

== ENCOUNTER 2021-02-16 08:43 | Emergency (ER) | payer MEDICARE, OTHER ==
[2021-02-16] MEDS ORDERED: Sodium Chloride 0.9% 10 ML Syringe FLUSH PRN (08:50)
[2021-02-16] MEDS ORDERED: Sodium Chloride 0.9% 2.5 ML Syringe FLUSH PRN (08:50)
[2021-02-16] MEDS ORDERED: Albuterol/Ipratropium 3.0-0.5 MG/3 ML Neb Soln NEB ONE (08:52)
[2021-02-16] MEDS ORDERED: cefTRIAXone 1 GM in Premix Bag 1 BAG IV ONE (08:53)
--- NOTE | 2021-02-16 08:55 | EDM.PDOC ---
ED HPI GENERAL MEDICAL PROBLEM - General Stated Complaint: CANT BREATHE Time Seen by Provider: 02/16/21 09:45 - History of Present Illness INITIAL COMMENTS - FREE TEXT/NARRATIVE: History of present illness: [] This patient was discharged at the beginning of this month with pneumonia after a day and a half admission says she got short of breath again today. She is short of breath and coughing. Taking breath just make her cough harder. She is extremely short of breath and anxious and does not want anything for anxiety because she has had a reaction to what she was given for anxiety in the past. She says she has bronchiectasis. She does not have COPD emphysema or asthma. 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 And she has anemia. Review of systems: As per history of present illness and below otherwise all systems reviewed and negative. Past medical history: As per history of present illness and as reviewed below otherwise noncontributory. Surgical history: As per history of present illness and as reviewed below otherwise noncontributory. Social history: No reported history of drug or alcohol abuse. Family history: As per history of present illness and as reviewed below otherwise noncontributory. Physical exam: Constitutional - well developed, well-nourished and in acute distress HEENT - normocephalic, no evidence of trauma - external nose and mouth normal - no mass in neck and no JVD - mucosae moist EYES - full EOM, PERRL, no icterus - no evidence of inflammation, injection, or drainage Respiratory - respiratory distress, equal bilateral expansion, lungs clear to auscultation and no abnormal lung sounds Cardiovascular - Regular Rhythm with S1 and S2 appreciated and no murmur, gallop or rub. GI - abdomen soft without distension or organomegaly - normal bowel sounds - no guard or rebound Musculoskeletal no gross deformity of long bones or joints - no tenderness, swelling or edema Neurologic - Alert and oriented times four - CN II-XII grossly intact - motor sensory and coordination symmetrically normal Psychiatric - appropriate mood and affect with normal thought content Hematologic - No petechiae or purpura - mucosa appropriate color and sclera not pale - normal nail bed color and refill Integument - no rash or evidence of trauma - normal turgor Diagnostics: [] Therapeutics: [] Impression: [] Plan: [] Definitive disposition and diagnosis as appropriate pending reevaluation and review of above. - Related Data Allergies Allergy/AdvReac Type Severity Reaction Status Date / Time No Known Allergies Allergy Verified 02/16/21 09:15 Home Meds: Home Meds Losartan/Hydrochlorothiazide [Losartan-HCTZ 100-12.5 MG] 1 tab PO DAILY 06/19/14 [History] Acetaminophen [Tylenol Extra Strength] 500 mg PO Q4H PRN tablet 01/29/21 [Rx] Benzonatate 100 mg PO BEDTIME PRN 10 Days #10 capsule 01/29/21 [Rx] Cefdinir [Omnicef] 300 mg PO BID 7 Days #14 cap 01/29/21 [Rx] Doxycycline Hyclate [Vibramycin] 100 mg PO BID 10 Days #20 capsule 01/29/21 [Rx] Fluticasone Furoate [Flonase Sensimist] 5.9 ml NS DAILY 14 Days #1 bottle 01/29/21 [Rx] Past Medical History HEENT History: Reports: Allergic Rhinitis, Other (See Below) Other HEENT History: wears glasses Cardiovascular History: Reports: Hypertension Respiratory History: Reports: Asthma, Pneumonia, Recurrent Other Respiratory History: rarely uses inhaler, no asthma attack for 15 years, ho multiple pulmonary nodules Gastrointestinal History: Reports: Colon Polyp, Other (See Below) Other Gastrointestinal History: esophageal varices Genitourinary History: Reports: Urinary Incontinence Other Genitourinary History: Cystocele BANANA LO[employer]ER History: Reports: None Musculoskeletal History: Reports: Fracture, Other (See Below) Other Musculoskeletal History: Hx. of fracture each foot R, osteopenia Neurological History: Reports: None Endocrine/Metabolic History: Reports: None, Other (See Below) Hematologic History: Reports: Blood Transfusion(s), Other (See Below) Other Hematologic History: hx of leukopenia Immunologic History: Reports: Other (See Below) Other Immunologic History: JOSSELIN autoimmune Oncologic (Cancer) History: Reports: None Dermatologic History: Reports: Eczema Other Dermatologic History: hx: eczema flare ups - Infectious Disease History Infectious Disease History: Reports: Chicken Pox, Measles - Past Surgical History Head Surgeries/Procedures: Reports: None HEENT Surgical History: Reports: Naso-Sinus Surgery, Tonsillectomy Other HEENT Surgeries/Procedures: Sinus surgery Cardiovascular Surgical History: Reports: Varicose Other Cardiovascular Surgeries/Procedures: left varicose vein stripping Respiratory Surgical History: Reports: None GI Surgical History: Reports: Colonoscopy, EGD Female Surgical History: Reports: Hysterectomy, Salpingo-Oophorectomy, Tubal Ligation Endocrine Surgical History: Reports: None Neurological Surgical History: Reports: None Musculoskeletal Surgical History: Reports: None Oncologic Surgical History: Reports: None Dermatological Surgical History: Reports: None Social & Family History - Family History Family Medical History: No Pertinent Family History - Caffeine Use Caffeine Use: Reports: Coffee Caffeine Use Comment: daily ED ROS GENERAL - Review of Systems Review Of Systems: Comprehensive ROS is negative, except as noted in HPI. ED EXAM, GENERAL - Physical Exam Exam: See Below Free Text/Narrative:: My physical exam is in the HPI #1 Interpretation EKG Interpretation Comments: EKG done at 8:57 AM shows a sinus tachycardia with a regular rate. The patient has a heart rate of 107. CA interval 155. Campbell XX 8. QT duration 422. The patient is a late transition R wave in the precordium. This is compared to 01/28/2021 there is no significant acute change. Impression no injury. Course - Vital Signs Text/Narrative:: 11:05 AM patient appears to be dehydrated and was hyperventilating and anxious. Her lactate was elevated. She admits she does not drink much fluid. The patient is feeling fine after 1 nebulizer treatment and she has nebulizer treatments at home. She has 800 mL of fluid infused and after 1500 we will recheck her lactate. 12:31 AM patient feels better Last Recorded V/S: Last Vital Signs Temp 37.1 C 02/16/21 08:45 Pulse 81 02/16/21 11:09 Resp 17 02/16/21 11:09 BP 124/51 L 02/16/21 11:09 Pulse Ox 93 L 02/16/21 11:09 - Orders/Labs/Meds Orders: Active Orders 24 hr Category Date Time Status Cardiac Monitoring [RC] . DIRECTED Care 02/16/21 08:50 Active EKG Documentation Completion [RC] AM Care 02/16/21 08:50 Active Pulse Oximetry [RC] ASDIRECTED Care 02/16/21 08:50 Active RT Aerosol Therapy [RC] ASDIRECTED Care 02/16/21 08:53 Active CULTURE BLOOD [BC] Stat Lab 02/16/21 09:10 Received CULTURE BLOOD [BC] Stat Lab 02/16/21 09:16 Received REFLEX LACTIC ACID YES OR NO [CHEM] Routine Lab 02/16/21 09:38 Received UA W/JACKI RFLX IF INDICATED [URIN] Stat Lab 02/16/21 08:51 Ordered Sodium Chloride 0.9% [Normal Saline] 500 ml Med 02/16/21 11:00 Active IV .BOLUS Sodium Chloride 0.9% [Saline Flush] Med 02/16/21 08:50 Active 10 ml FLUSH ASDIRECTED PRN Sodium Chloride 0.9% [Saline Flush] Med 02/16/21 08:50 Active 2.5 ml FLUSH ASDIRECTED PRN Blood Culture x2 Reflex Set [OM.PC] Stat Oth 02/16/21 08:51 Ordered Saline Lock Insert [OM.PC] Stat Ot 02/16/21 08:50 Ordered Medication Orders Sodium Chloride (Normal Saline) 500 mls @ 500 mls/hr IV .BOLUS MISSY Last Admin: 02/16/21 11:26 Dose: 500 mls/hr Documented by: GROTALI Sodium Chloride (Sodium Chloride 0.9% 10 Ml Syringe) 10 ml FLUSH ASDIRECTED PRN PRN Reason: Keep Vein Open Last Admin: 02/16/21 09:26 Dose: 10 ml Documented by: NICOTALI Sodium Chloride (Sodium Chloride 0.9% 2.5 Ml Syringe) 2.5 ml FLUSH ASDIRECTED PRN PRN Reason: Keep Vein Open Last Admin: 02/16/21 09:26 Dose: 2.5 ml Documented by: SHAVON Labs: Laboratory Tests 02/16/21 02/16/21 02/16/21 Range/Units 08:51 08:51 09:10 WBC 7.00 (4.0-11.0) K/uL RBC 4.42 (4.30-5.90) M/uL Hgb 13.2 (12.0-16.0) g/dL Hct 39.8 (36.0-46.0) % MCV 90.0 (80.0-98.0) fL MCH 29.9 (27.0-32.0) pg MCHC 33.2 (31.0-37.0) g/dL RDW Std Deviation 49.4 (28.0-62.0) fl RDW Coeff of Ermelinda 15 (11.0-15.0) % Plt Count 89 L (150-400) K/uL MPV 11.50 (7.40-12.00) fL Neut % (Auto) 71.3 (48.0-80.0) % Lymph % (Auto) 11.1 L (16.0-40.0) % Dillon % (Auto) 14.0 (0.0-15.0) % Eos % (Auto) 3.0 (0.0-7.0) % Baso % (Auto) 0.6 (0.0-1.5) % Neut # (Auto) 5.0 (1.4-5.7) K/uL Lymph # (Auto) 0.8 (0.6-2.4) K/uL Dillon # (Auto) 1.0 H (0.0-0.8) K/uL Eos # (Auto) 0.2 (0.0-0.7) K/uL Baso # (Auto) 0.0 (0.0-0.1) K/uL Nucleated RBC % 0.0 /100WBC Nucleated RBCs # 0 K/uL ABG pH (7.35-7.45) ABG pCO2 (35-45) mmHG ABG pO2 (80-105) mmHG ABG HCO3 (22-26) mEq/L ABG Total CO2 (23-27) mmol/L ABG Base Excess (-2.0-3.0) Sodium 134 L (136-145) mmol/L Potassium 3.7 (3.5-5.1) mmol/L Chloride 99 (98-107) mmol/L Carbon Dioxide 27.2 (21.0-32.0) mmol/L BUN 11 (7.0-18.0) mg/dL Creatinine 0.9 (0.6-1.0) mg/dL Est Cr Clr Drug Dosing 50.23 mL/min Estimated GFR (MDRD) > 60.0 ml/min Glucose 167 H (74-106) mg/dL Lactic Acid 2.3 H* (0.4-2.0) mmol/L Calcium 7.5 L (8.5-10.1) mg/dL Total Bilirubin 1.1 H (0.2-1.0) mg/dL AST 33 (15-37) IU/L ALT 38 (14-63) IU/L Alkaline Phosphatase 176 H (46-116) U/L Troponin I < 0.050 (0.000-0.056) ng/mL Total Protein 6.9 (6.4-8.2) g/dL Albumin 3.0 L (3.4-5.0) g/dL Globulin 3.9 (2.6-4.0) g/dL Albumin/Globulin Ratio 0.8 L (0.9-1.6) 02/16/21 02/16/21 Range/Units 09:35 11:30 WBC (4.0-11.0) K/uL RBC (4.30-5.90) M/uL Hgb (12.0-16.0) g/dL Hct (36.0-46.0) % MCV (80.0-98.0) fL MCH (27.0-32.0) pg MCHC (31.0-37.0) g/dL RDW Std Deviation (28.0-62.0) fl RDW Coeff of Ermelinda (11.0-15.0) % Plt Count (150-400) K/uL MPV (7.40-12.00) fL Neut % (Auto) (48.0-80.0) % Lymph % (Auto) (16.0-40.0) % Dillon % (Auto) (0.0-15.0) % Eos % (Auto) (0.0-7.0) % Baso % (Auto) (0.0-1.5) % Neut # (Auto) (1.4-5.7) K/uL Lymph # (Auto) (0.6-2.4) K/uL Dillon # (Auto) (0.0-0.8) K/uL Eos # (Auto) (0.0-0.7) K/uL Baso # (Auto) (0.0-0.1) K/uL Nucleated RBC % /100WBC Nucleated RBCs # K/uL ABG pH 7.50 H (7.35-7.45) ABG pCO2 32 L (35-45) mmHG ABG pO2 95 (80-105) mmHG ABG HCO3 25 (22-26) mEq/L ABG Total CO2 22.0 L (23-27) mmol/L ABG Base Excess 1.8 (-2.0-3.0) Sodium (136-145) mmol/L Potassium (3.5-5.1) mmol/L Chloride (98-107) mmol/L Carbon Dioxide (21.0-32.0) mmol/L BUN (7.0-18.0) mg/dL Creatinine (0.6-1.0) mg/dL Est Cr Clr Drug Dosing mL/min Estimated GFR (MDRD) ml/min Glucose (74-106) mg/dL Lactic Acid 1.1 (0.4-2.0) mmol/L Calcium (8.5-10.1) mg/dL Total Bilirubin (0.2-1.0) mg/dL AST (15-37) IU/L ALT (14-63) IU/L Alkaline Phosphatase (46-116) U/L Troponin I (0.000-0.056) ng/mL Total Protein (6.4-8.2) g/dL Albumin (3.4-5.0) g/dL Globulin (2.6-4.0) g/dL Albumin/Globulin Ratio (0.9-1.6) Meds: Medications Generic Name Dose Route Start Last Admin Trade Name Freq PRN Reason Stop Dose Admin Sodium Chloride 500 mls @ 500 mls/hr 02/16/21 11:00 02/16/21 11:26 Normal Saline IV 500 mls/hr .BOLUS MISSY Administration Sodium Chloride 10 ml 02/16/21 08:50 02/16/21 09:26 Sodium Chloride 0.9% 10 Ml Syringe FLUSH 10 ml ASDIRECTED PRN Administration Keep Vein Open Sodium Chloride 2.5 ml 02/16/21 08:50 02/16/21 09:26 Sodium Chloride 0.9% 2.5 Ml Syringe FLUSH 2.5 ml ASDIRECTED PRN Administration Keep Vein Open Discontinued Medications Generic Name Dose Route Start Last Admin Trade Name Freq PRN Reason Stop Dose Admin Albuterol/Ipratropium 3 ml 02/16/21 08:52 02/16/21 09:26 Albuterol/Ipratropium 3.0-0.5 Mg/3 Ml Neb Soln NEB 02/16/21 08:53 3 ml ONETIME ONE Administration Ceftriaxone Sodium/Dextrose 1 50 mls @ 100 mls/hr 02/16/21 08:53 02/16/21 09:26 gm/ Premix IV 02/16/21 09:22 100 mls/hr ONETIME ONE Administration Sodium Chloride 1,000 mls @ 1,000 mls/hr 02/16/21 09:57 02/16/21 10:27 Normal Saline IV 02/16/21 10:56 1,000 mls/hr .Bolus ONE Administration Departure - Departure Time of Disposition: 12:32 Disposition: Home, Self-Care 01 Condition: Good Clinical Impression: Dehydration, Elevated lactic acid level, Hyperventilation - Discharge Information Instructions: Shortness of Breath, Adult, [id number], Hyperventilation, Dehydration, Adult Referrals: Carlos Munoz MD [Primary Care Provider] - Additional Instructions: [facility] - Primary Care [address] [place] [id number] [address] The following information is given to patients seen in the emergency department who are being discharged to home. This information is to outline your options for follow-up care. We provide all patients seen in our emergency department with a follow-up referral. The need for follow-up, as well as the timing and circumstances, are variable depending upon the specifics of your emergency department visit. If you don't have a primary care physician on staff, we will provide you with a referral. We always advise you to contact your personal physician following an emergency department visit to inform them of the circumstance of the visit and for follow-up with them and/or the need for any referrals to a consulting specialist. The emergency department will also refer you to a specialist when appropriate. This referral assures that you have the opportunity for follow-up care with a specialist. All of these measure are taken in an effort to provide you with optimal care, which includes your follow-up. Under all circumstances we always encourage you to contact your private physician who remains a resource for coordinating your care. When calling for follow-up care, please make the office aware that this follow-up is from your recent emergency room visit. If for any reason you are refused follow-up, please contact the [facility] Emergency Department at and asked to speak to the emergency department charge nurse. Sepsis Event Note (ED) - Focused Exam Vital Signs: Vital Signs Temp Pulse Resp BP Pulse Ox 02/16/21 11:09 81 17 124/51 L 93 L 02/16/21 10:30 91 20 125/58 L 95 02/16/21 08:45 37.1 C 104 H 26 H 149/94 H 84 L - My Orders Last 24 Hours: My Active Orders 02/16/21 08:50 Cardiac Monitoring [RC] . DIRECTED EKG Documentation Completion [RC] AM Pulse Oximetry [RC] ASDIRECTED Sodium Chloride 0.9% [Saline Flush] 10 ml FLUSH ASDIRECTED PRN Sodium Chloride 0.9% [Saline Flush] 2.5 ml FLUSH ASDIRECTED PRN Saline Lock Insert [OM.PC] Stat 02/16/21 08:51 UA W/JACKI RFLX IF INDICATED [URIN] Stat Blood Culture x2 Reflex Set [OM.PC] Stat 02/16/21 08:53 RT Aerosol Therapy [RC] ASDIRECTED 02/16/21 09:10 CULTURE BLOOD [BC] Stat 02/16/21 09:16 CULTURE BLOOD [BC] Stat 02/16/21 09:38 REFLEX LACTIC ACID YES OR NO [CHEM] Routine 02/16/21 11:00 Sodium Chloride 0.9% [Normal Saline] 500 ml IV .BOLUS - Assessment/Plan Last 24 Hours: My Active Orders 02/16/21 08:50 Cardiac Monitoring [RC] . DIRECTED EKG Documentation Completion [RC] AM Pulse Oximetry [RC] ASDIRECTED Sodium Chloride 0.9% [Saline Flush] 10 ml FLUSH ASDIRECTED PRN Sodium Chloride 0.9% [Saline Flush] 2.5 ml FLUSH ASDIRECTED PRN Saline Lock Insert [OM.PC] Stat 02/16/21 08:51 UA W/JACKI RFLX IF INDICATED [URIN] Stat Blood Culture x2 Reflex Set [OM.PC] Stat 02/16/21 08:53 RT Aerosol Therapy [RC] ASDIRECTED 02/16/21 09:10 CULTURE BLOOD [BC] Stat 02/16/21 09:16 CULTURE BLOOD [BC] Stat 02/16/21 09:38 REFLEX LACTIC ACID YES OR NO [CHEM] Routine 02/16/21 11:00 Sodium Chloride 0.9% [Normal Saline] 500 ml IV .BOLUS
[2021-02-16 09:25] LABS: BLOOD UREA NITROGEN,BUN 11 mg/dL (7.0-18.0); CARBON DIOXIDE,CO2 27.2 mmol/L (21.0-32.0); CHLORIDE,CL 99 mmol/L (98-107); GLUCOSE RANDOM 167 mg/dL (74-106); POTASSIUM,K 3.7 mmol/L (3.5-5.1); SODIUM,NA 134 mmol/L (136-145)
--- NOTE | 2021-02-16 09:54 | CR ---
INDICATION: Dyspnea TECHNIQUE: Chest 1 view COMPARISON: 01/28/2021, 12/13/2020 FINDINGS: Cardiovascular and mediastinum: Cardiac silhouette is enlarged. Vascular calcifications. Stable central pulmonary vessels. Lungs and pleural spaces: Diffuse reticulonodular opacities bilaterally in a mid and lower lung zone distribution, as before. No pleural effusion or pneumothorax. No dense consolidation. Bones and soft tissues: No significant findings. IMPRESSION: Chronic bilateral pulmonary fibrosis without acute change. COPD/emphysema also likely. Dictated by Souleymane Jimenez MD @ 02/16/2021 9:51:[address] Souleymane Jimenez @ Feb 16 2021 9:51AM
[2021-02-16] MEDS ORDERED: Sodium Chloride 0.9% 1,000 ML IV ONE (09:57)
[2021-02-16] MEDS ORDERED: Sodium Chloride 0.9% 500 ML IV SCH (11:00)
[2021-02-16 12:33] VITALS: BP 116/55; PULSE 83
== END 2021-02-16 12:43 | disposition home or self-care (01) ==
LOC: MW.ED 08:43
DX: R06.4 Hyperventilation (principal); E86.0 Dehydration; R74.02 Elevation of levels of lactic acid dehydrogenase [LDH]; I10 Essential (primary) hypertension
CPT/HCPCS: 36415; 36600; 71045; 80053; 82803; 83605; 84484; 85025; 87040; 93005; 96365; 99285; J0696; J7030; J7040; 93010; 99284; J7620-GY

== ENCOUNTER 2021-09-30 13:13 | Emergency (ER) | payer MEDICARE, OTHER ==
[2021-09-30] MEDS ORDERED: Sodium Chloride 0.9% 10 ML Syringe FLUSH PRN (13:20)
[2021-09-30] MEDS ORDERED: Sodium Chloride 0.9% 2.5 ML Syringe FLUSH PRN (13:20)
[2021-09-30 14:08] LABS: BLOOD UREA NITROGEN,BUN 14 mg/dL (7.0-18.0); CHLORIDE,CL 100 mmol/L (98-107); GLUCOSE RANDOM 106 mg/dL (74-106); POTASSIUM,K 3.4 mmol/L (3.5-5.1); SODIUM,NA 136 mmol/L (136-145)
[2021-09-30 14:12] LABS: CORONAVIRUS COVID-19 NAA NEGATIVE (NEGATIVE); INFLUENZA A NAA NEGATIVE (NEGATIVE); INFLUENZA B NAA NEGATIVE (NEGATIVE)
[2021-09-30] MEDS ORDERED: Iopamidol 755 MG/ML 500 ML Multipack Bottle IVPUSH STA (14:33)
--- NOTE | 2021-09-30 15:23 | CT ---
INDICATION: Hypoxia and chest pain. TECHNIQUE: CT chest PE was acquired with 100 cc Isovue 370 IV contrast. COMPARISON: 09/18/2020. FINDINGS: Heart and vasculature: Contrast opacification of the pulmonary arterial tree is adequate. No sign of pulmonary embolism. Mild cardiomegaly. Great vessels normal in caliber. Lungs and pleural: Diffuse bilateral reticulonodular opacities are present. This pattern is similar to the prior exam but slightly less severe. No lobar consolidations. No pleural effusions, pleural thickening, or pneumothorax. Lymph nodes/mediastinum: No mediastinal, hilar, or axillary adenopathy. Chest wall: No masses. Upper abdomen: No acute or significant findings. Bones: Unremarkable for age. IMPRESSION: 1. No pulmonary embolism. 2. Chronic versus recurrent reticulonodular infiltrates present throughout both lungs. This is similar to the prior exam but slightly less severe. These infiltrates are nonspecific with an infectious or inflammatory process suspected. CHF is a less likely consideration. Please note that all CT scans at this facility use dose modulation, iterative reconstruction, and/or weight-based dosing when appropriate to reduce radiation dose to as low as reasonably achievable. Dictated by Kaiden Thompson MD @ 09/30/2021 3:21:39 PM (Electronically Signed)
--- NOTE | 2021-09-30 15:35 | EDM.PDOC ---
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 Patient states that she does have a history of frequent pneumonia and states that this feels typical of her pneumonia in fections. Patient states that she also has a history of bronchiectasis and states that in general she has some baseline shortness of breath as a result of this. Patient states because of her CVID she recognizes that her immune system is not functioning as well as it should and states that often she will get placed on antibiotics when she develops the symptoms. Patient states that she tends to get the symptoms every winter and feels this is typical of what she usually has. Patient denies any trauma or injury or any other associated symptoms. Patient denies fever, chills, chest pain. Denies headache, neck stiff ness, change in vision, syncope, or near syncope. Denies nausea, vomiting, abdominal pain, diarrhea, constipation, or dysuria. Has not noted any blood in urine or stool. Patient has been eating and drinking appropriately. Review of systems: As per history of present illness and below otherwise all systems reviewed and negative. Past medical history: As per history of present illness and as reviewed below otherwise noncontributory. Surgical history: As per history of present illness and as reviewed below otherwise noncontributory. Social history: See social history for further information Family history: As per history of present illness and as reviewed below otherwise noncontributory. Physical exam: General: Patient is alert, oriented, and in no acute distress. Patient sitting comfortably on exam table. Vitals stable and reviewed by me. HEENT: Bilateral nasal congestion. Atraumatic, normocephalic, pupils equal and reactive bilaterally, negative for conjunctival pallor or scleral icterus, mucous membranes moist, throat clear, neck supple, nontender, trachea midline. No drooling or trismus noted. No meningeal signs. No hot potato voice noted. Lungs: Wet cough on exam. Otherwise, clear to auscultation, breath sounds equal bilaterally, chest nontender. Heart: S1S2, regular rate and rhythm without overt murmur Abdomen: Soft, nondistended, nontender. Negative for masses or hepatosplenomegaly. Negative for costovertebral tenderness. Pelvis: Stable nontender. Genitourinary: Deferred. Rectal: Deferred. Skin: Intact, warm, dry. No lesions or rashes noted. Extremities: Atraumatic, negative for cords or calf pain. Neurovascular unremarkable. Neuro: Awake, alert, oriented. Cranial nerves II through XII unremarkable. Cerebellum unremarkable. Motor and sensory unremarkable throughout. Exam nonfocal. Medical Decision Making: Patient is a 71-year-old female with a medical history of frequent pneumonia/bronchiectasis, see CVID on immunotherapy who presents emergency room today with concern of shortness of breath, nasal congestion and cough for 4 days. Upon arrival to the ED, patient is vitally stable and well-appearing on exam. She is noted to have some nasal congestion and a wet cough on exam, remainder of exam is unremarkable. (Note that triage vital signs have patient at 80%, however, this was taken in error and patient not hypoxic throughout stay in ED). Will obtain cardiac evaluation, angiography chest, and reassess patient. See Dr. Cotter's dictation for specific EKG interpretation. Otherwise, NSR without STEMI. CBC does show patient has thrombocytopenia with platelets at 68. In comparison to past lab work, this is stable and she consistently is thrombocytopenic. Otherwise mild derangements of CBC are unremarkable. CMP does show mild alkalemia at 3.4. AST elevated at 38 and alk phos elevated at 186. Troponin negative. Covid and influenza negative. Angiography of the chest shows no pulmonary embolism. Chronic versus recurrent reticular nodular infiltrate present throughout both lungs. This is similar to prior exam but slightly less severe. These infiltrates are nonspecific with an infectious or inflammatory process suspected. CHF is less likely. Upon reevaluation of patient, treatments vitally stable and comfortable throughout stay in ED. Admission for observation was offered, however, patient declines. All risks versus benefits discussed with patient and expresses understanding. Strict return precautions thoroughly discussed with patient. Discussed importance for follow-up with the primary care provider. Voices understanding and is agreeable to plan of care. Denies any further questions or concerns at this time. Diagnostics: EKG, CBC, CMP, angiography chest, troponin, Covid/influenza Therapeutics: None Prescription: Augmentin, azithromycin Impression: Community acquired pneumonia Plan: 1. Take medication as prescribed. You can alternate ibuprofen and Tylenol as directed for pain and discomfort. 2. Follow-up with a primary care provider in the next 1 to 3 days as discussed. Return to the ED as needed and as discussed. Definitive disposition and diagnosis as appropriate pending reevaluation and review of above. chest Pain Score (Numeric/FACES): 3 - Related Data Allergies Allergy/AdvReac Type Severity Reaction Status Date / Time No Known Allergies Allergy Verified 09/30/21 13:16 Home Meds: Home Meds Losartan/Hydrochlorothiazide [Losartan-HCTZ 100-12.5 MG] 1 tab PO DAILY 06/19/14 [History] Amoxicillin/Potassium Clav [Augmentin 875-125 Tablet] 1 each PO BID 7 Days #14 tablet 09/30/21 [Rx] Azithromycin 250 mg PO DAILY 5 Days #6 tablet 09/30/21 [Rx] Denosumab [Prolia] 60 mg IM ASDIRECTED 09/30/21 [History] Past Medical History HEENT History: Reports: Allergic Rhinitis, Other (See Below) Other HEENT History: wears glasses Cardiovascular History: Reports: Hypertension Respiratory History: Reports: Asthma, Pneumonia, Recurrent Other Respiratory History: rarely uses inhaler, no asthma attack for 15 years, ho multiple pulmonary nodules Gastrointestinal History: Reports: Colon Polyp, Other (See Below) Other Gastrointestinal History: esophageal varices Genitourinary History: Reports: Urinary Incontinence Other Genitourinary History: Cystocele STOCKBROKER History: Reports: None Musculoskeletal History: Reports: Fracture, Other (See Below) Other Musculoskeletal History: Hx. of fracture each foot R, osteopenia Neurological History: Reports: None Psychiatric History: Reports: None Endocrine/Metabolic History: Reports: None, Other (See Below) Hematologic History: Reports: Blood Transfusion(s), Other (See Below) Other Hematologic History: hx of leukopenia Immunologic History: Reports: Other (See Below) Other Immunologic History: JOSSELIN autoimmune Oncologic (Cancer) History: Reports: None Dermatologic History: Reports: Eczema Other Dermatologic History: hx: eczema flare ups - Infectious Disease History Infectious Disease History: Reports: Chicken Pox, Measles - Past Surgical History Head Surgeries/Procedures: Reports: None HEENT Surgical History: Reports: Naso-Sinus Surgery, Tonsillectomy Other HEENT Surgeries/Procedures: Sinus surgery Cardiovascular Surgical History: Reports: Varicose Other Cardiovascular Surgeries/Procedures: left varicose vein stripping Respiratory Surgical History: Reports: None GI Surgical History: Reports: Colonoscopy, EGD Female Surgical History: Reports: Hysterectomy, Salpingo-Oophorectomy, Tubal Ligation Endocrine Surgical History: Reports: None Neurological Surgical History: Reports: None Musculoskeletal Surgical History: Reports: None Oncologic Surgical History: Reports: None Dermatological Surgical History: Reports: None Social & Family History - Family History Family Medical History: No Pertinent Family History - Caffeine Use Caffeine Use: Reports: Coffee Caffeine Use Comment: daily - Recreational Drug Use Recreational Drug Use: No ED ROS GENERAL - Review of Systems Review Of Systems: Comprehensive ROS is negative, except as noted in HPI. ED EXAM, GENERAL - Physical Exam Exam: See Below (see dictation) Course - Vital Signs Last Recorded V/S: Last Vital Signs Temp 100 F 09/30/21 13:19 Pulse 97 09/30/21 16:02 Resp 18 09/30/21 16:02 BP 124/73 09/30/21 16:02 Pulse Ox 97 09/30/21 16:02 - Orders/Labs/Meds Orders: Active Orders 24 hr Category Date Time Status Saline Lock Insert [OM.PC] Stat Oth 09/30/21 13:20 Ordered Labs: Laboratory Tests 09/30/21 09/30/21 09/30/21 Range/Units 13:27 13:27 13:27 WBC 7.29 (4.0-11.0) K/uL RBC 4.32 (4.30-5.90) M/uL Hgb 12.8 (12.0-16.0) g/dL Hct 37.7 (36.0-46.0) % MCV 87.3 (80.0-98.0) fL MCH 29.6 (27.0-32.0) pg MCHC 34.0 (31.0-37.0) g/dL RDW Std Deviation 48.3 (28.0-62.0) fl RDW Coeff of Ermelinda 15 (11.0-15.0) % Plt Count 68 L (150-400) K/uL MPV 10.00 (7.40-12.00) fL Neut % (Auto) 75.4 (48.0-80.0) % Lymph % (Auto) 8.2 L (16.0-40.0) % [place] % (Auto) 13.6 (0.0-15.0) % Eos % (Auto) 2.5 (0.0-7.0) % Baso % (Auto) 0.3 (0.0-1.5) % Neut # (Auto) 5.5 (1.4-5.7) K/uL Lymph # (Auto) 0.6 (0.6-2.4) K/uL [place] # (Auto) 1.0 H (0.0-0.8) K/uL Eos # (Auto) 0.2 (0.0-0.7) K/uL Baso # (Auto) 0.0 (0.0-0.1) K/uL Nucleated RBC % 0.0 /100WBC Nucleated RBCs # 0 K/uL INR 0.94 Sodium 136 (136-145) mmol/L Potassium 3.4 L (3.5-5.1) mmol/L Chloride 100 (98-107) mmol/L Carbon Dioxide 29.0 (21.0-32.0) mmol/L BUN 14 (7.0-18.0) mg/dL Creatinine 0.9 (0.6-1.0) mg/dL Est Cr Clr Drug Dosing 52.06 mL/min Estimated GFR (MDRD) > 60.0 ml/min Glucose 106 (74-106) mg/dL Calcium 8.0 L (8.5-10.1) mg/dL Total Bilirubin 0.9 (0.2-1.0) mg/dL AST 38 H (15-37) IU/L ALT 42 (14-63) IU/L Alkaline Phosphatase 186 H (46-116) U/L Troponin I < 0.050 (0.000-0.056) ng/mL Total Protein 6.9 (6.4-8.2) g/dL Albumin 3.2 L (3.4-5.0) g/dL Globulin 3.7 (2.6-4.0) g/dL Albumin/Globulin Ratio 0.9 (0.9-1.6) Influenza Type A RNA (NEGATIVE) Influenza Type B RNA (NEGATIVE) SARS-CoV-2 RNA ([place]) (NEGATIVE) 09/30/21 Range/Units 13:29 WBC (4.0-11.0) K/uL RBC (4.30-5.90) M/uL Hgb (12.0-16.0) g/dL Hct (36.0-46.0) % MCV (80.0-98.0) fL MCH (27.0-32.0) pg MCHC (31.0-37.0) g/dL RDW Std Deviation (28.0-62.0) fl RDW Coeff of Ermelinda (11.0-15.0) % Plt Count (150-400) K/uL MPV (7.40-12.00) fL Neut % (Auto) (48.0-80.0) % Lymph % (Auto) (16.0-40.0) % [place] % (Auto) (0.0-15.0) % Eos % (Auto) (0.0-7.0) % Baso % (Auto) (0.0-1.5) % Neut # (Auto) (1.4-5.7) K/uL Lymph # (Auto) (0.6-2.4) K/uL [place] # (Auto) (0.0-0.8) K/uL Eos # (Auto) (0.0-0.7) K/uL Baso # (Auto) (0.0-0.1) K/uL Nucleated RBC % /100WBC Nucleated RBCs # K/uL INR Sodium (136-145) mmol/L Potassium (3.5-5.1) mmol/L Chloride (98-107) mmol/L Carbon Dioxide (21.0-32.0) mmol/L BUN (7.0-18.0) mg/dL Creatinine (0.6-1.0) mg/dL Est Cr Clr Drug Dosing mL/min Estimated GFR (MDRD) ml/min Glucose (74-106) mg/dL Calcium (8.5-10.1) mg/dL Total Bilirubin (0.2-1.0) mg/dL AST (15-37) IU/L ALT (14-63) IU/L Alkaline Phosphatase (46-116) U/L Troponin I (0.000-0.056) ng/mL Total Protein (6.4-8.2) g/dL Albumin (3.4-5.0) g/dL Globulin (2.6-4.0) g/dL Albumin/Globulin Ratio (0.9-1.6) Influenza Type A RNA NEGATIVE (NEGATIVE) Influenza Type B RNA NEGATIVE (NEGATIVE) SARS-CoV-2 RNA ([place]) NEGATIVE (NEGATIVE) Meds: Medications Discontinued Medications Generic Name Dose Route Start Last Admin Trade Name Freq PRN Reason Stop Dose Admin Iopamidol 100 ml 09/30/21 14:33 09/30/21 14:43 Iopamidol 755 Mg/Ml 500 Ml Multipack Bottle IVPUSH 09/30/21 14:34 100 ml ONETIME STA Administration Sodium Chloride 10 ml 09/30/21 13:20 09/30/21 14:13 Sodium Chloride 0.9% 10 Ml Syringe FLUSH 10 ml ASDIRECTED PRN Administration Keep Vein Open Sodium Chloride 2.5 ml 09/30/21 13:20 09/30/21 14:13 Sodium Chloride 0.9% 2.5 Ml Syringe FLUSH 2.5 ml ASDIRECTED PRN Administration Keep Vein Open Departure - Departure Time of Disposition: 15:34 Disposition: Home, Self-Care 01 Clinical Impression: Community acquired pneumonia - Discharge Information Prescriptions: Amoxicillin/Potassium Clav [Augmentin 875-125 Tablet] 1 each PO BID 7 Days #14 tablet Azithromycin 250 mg PO DAILY 5 Days #6 tablet Instructions: Community-Acquired Pneumonia, Adult, [id number] Referrals: PCP,None [Primary Care Provider] - Forms: ED Department Discharge Additional Instructions: The following information is given to patients seen in the emergency department who are being discharged to home. This information is to outline your options for follow-up care. We provide all patients seen in our emergency department with a follow-up referral. Your prescription has been sent to [facility]. The need for follow-up, as well as the timing and circumstances, are variable depending upon the specifics of your emergency department visit. If you don't have a primary care physician on staff, we will provide you with a referral. We always advise you to contact your personal physician following an emergency department visit to inform them of the circumstance of the visit and for follow-up with them and/or the need for any referrals to a consulting specialist. The emergency department will also refer you to a specialist when appropriate. This referral assures that you have the opportunity for follow-up care with a specialist. All of these measure are taken in an effort to provide you with optimal care, which includes your follow-up. Under all circumstances we always encourage you to contact your private physician who remains a resource for coordinating your care. When calling for follow-up care, please make the office aware that this follow-up is from your recent emergency room visit. If for any reason you are refused follow-up, please contact the [facility] Emergency Department at and asked to speak to the emergency department charge nurse. [facility] [address] [place] [id number] [id number] 1. Take medication as prescribed. You can alternate ibuprofen and Tylenol as directed for pain and discomfort. 2. Follow-up with a primary care provider in the next 1 to 3 days as discussed. Return to the ED as needed and as discussed. Sepsis Event Note (ED) - Evaluation Sepsis Screening Result: No Definite Risk - Focused Exam Vital Signs: Vital Signs Temp Pulse Resp BP Pulse Ox 09/30/21 16:02 97 18 124/73 97 09/30/21 15:07 85 135/66 96 09/30/21 14:02 82 140/62 96 09/30/21 13:19 100 F 97 18 80 L - My Orders Last 24 Hours: My Active Orders 09/30/21 13:20 Saline Lock Insert [OM.PC] Stat - Assessment/Plan Last 24 Hours: My Active Orders 09/30/21 13:20 Saline Lock Insert [OM.PC] Stat
[2021-09-30 16:03] VITALS: BP 124/73; PULSE 97
--- NOTE | 2021-10-01 08:02 | PCM.EKG ---
#1 Interpretation EKG Date: 09/30/21 Time: 13:18 Rhythm: NSR Rate (Beats/Min): 101 [place]: Normal P-Wave: Present QRS: Normal ST-T: Normal QT: Normal Comparison: No Change (02/16/21) EKG Interpretation Comments: Sinus Rhythm with sinus arrythmia
== END 2021-09-30 16:04 | disposition home or self-care (01) ==
LOC: MW.ED 13:13
DX: J18.9 Pneumonia, unspecified organism (principal); I10 Essential (primary) hypertension; Z79.899 Other long term (current) drug therapy; Z20.822 Contact with and (suspected) exposure to COVID-19
CPT/HCPCS: 0240U; 36415; 71275; 80053; 84484; 85025; 85610; 93005; 99285; Q9967

== ENCOUNTER 2022-11-01 10:37 | Emergency (ER) | payer MEDICARE, OTHER ==
[2022-11-01 11:29] LABS: CARBON DIOXIDE,CO2 30.4 mmol/L (21.0-32.0); POTASSIUM,K 3.3 mmol/L (3.5-5.1)
[2022-11-01] MEDS ORDERED: Potassium Chloride 20 MEQ Tab.ER PO STA (11:32)
[2022-11-01 11:42] LABS: CORONAVIRUS COVID-19 NAA NEGATIVE (NEGATIVE); INFLUENZA A NAA NEGATIVE (NEGATIVE); INFLUENZA B NAA NEGATIVE (NEGATIVE)
[2022-11-01] MEDS ORDERED: Iopamidol 755 Mg/ML 100 ML Bottle IVPUSH ONE (12:23)
[2022-11-01 14:27] VITALS: BP 122/61; PULSE 83
== END 2022-11-01 14:23 | disposition home or self-care (01) ==
LOC: MW.ED 10:37
DX: J18.9 Pneumonia, unspecified organism (principal); D69.6 Thrombocytopenia, unspecified; E87.6 Hypokalemia; R01.1 Cardiac murmur, unspecified; I49.8 Other specified cardiac arrhythmias; R79.1 Abnormal coagulation profile; D83.9 Common variable immunodeficiency, unspecified; I10 Essential (primary) hypertension; J45.909 Unspecified asthma, uncomplicated; Z79.899 Other long term (current) drug therapy; Z20.822 Contact with and (suspected) exposure to COVID-19
CPT/HCPCS: 0240U; 36415; 71045; 71275; 80053; 83735; 83880; 84484; 85025; 85379; 86140; 99284; A9270; Q9967; 93010

== ENCOUNTER 2023-02-26 10:41 | Emergency (ER) | payer MEDICARE, OTHER ==
[2023-02-26] MEDS ORDERED: Sodium Chloride 0.9% 10 ML Syringe FLUSH PRN (10:43)
[2023-02-26] MEDS ORDERED: Sodium Chloride 0.9% 2.5 ML Syringe FLUSH PRN (10:43)
[2023-02-26 10:48] VITALS: PULSE 74
[2023-02-26 11:54] VITALS: BP 128/60
== END 2023-02-26 11:53 | disposition home or self-care (01) ==
LOC: MW.ED 10:41
DX: T18.128A Food in esophagus causing other injury, initial encounter (principal); I10 Essential (primary) hypertension; J45.909 Unspecified asthma, uncomplicated; Z79.899 Other long term (current) drug therapy
CPT/HCPCS: 71045; 71045-26; 99283